=== PATIENT | male | born 1965 | race Caucasian/White ===

== ENCOUNTER 2017-11-02 11:58 | Emergency (ER) | payer BC, OTHER ==
[~2017-11-02] VITALS: Ht 180.3 cm; Wt 136.1 kg
[2017-11-02] MEDS ORDERED: fentaNYL INJECTION 100 MCG/2 ML AMP INJ ONE (12:01)
[2017-11-02] MEDS ORDERED: B/P MEDS (12:05)
[2017-11-02] MEDS ORDERED: CLINDAMYCIN 600 MG/50 ML IVPB 50 ML IV ONE ×2 (12:06→13:00)
--- NOTE | 2017-11-02 12:14 | ED Upper Extremity ---
General Chief Complaint: Trauma EMS/Air Arrival Activat Stated Complaint: RT HAND AMPUTATION Nursing Triage Note: SEE TRAUMA FLOW SHEET. 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 Shortly before arrival (1135) he caught his right hand in a machine with an auger mechanism immediately amputating his right hand. He attempted to stop the blood flow with his left hand and used a towel to this and. A tourniquet was placed. The hand was retrieved from the auger and brought here with the patient. He is alert and oriented and surprisingly calm. Onset: just prior to arrival Pain/Injury Location: right hand Method of Injury: other Allergies and Home Medications Allergies Coded Allergies: tetanus and diphtheria toxoids (Verified Allergy, Unknown, 11/02/17) Patient Home Medication List Home Medication List Reviewed: Yes Constitutional: see HPI EENTM: no symptoms reported Respiratory: no symptoms reported Cardiovascular: no symptoms reported Gastrointestinal: no symptoms reported Genitourinary: no symptoms reported Musculoskeletal: see HPI Skin: no symptoms reported Psychiatric/Neurological: No Symptoms Reported Past Jliptnd-Lojorm-Clpqcu Hx Patient Social History Alcohol Use: Occasionally Uses Recreational Drug Use: No Smoking Status: Never a Smoker Recent Foreign Travel: No Contact w/Someone Who Travel: No Recent Infectious Disease Expo: No Past Medical History Surgeries: Yes Gallbladder Cardiac: Yes Hypertension Physical Exam Vital Signs Capillary Refill : Height, Weight, BMI Height: 5'11.00" Weight: 300lbs. oz. 136.011649gc; 35.15 BMI Method: General Appearance: mild distress, moderate distress HEENT: normal ENT inspection Neck: full range of motion Cardiovascular: normal peripheral pulses, regular rate, rhythm, no edema, no gallop, no JVD, no murmur Respiratory: chest non-tender, lungs clear, normal breath sounds, no respiratory distress, no accessory muscle use The hand is examined. It appears to be cleanly severed at the wrist joint. Progress/Results/Core Measures Results/Orders My Orders Orders - NOLA ANDREWS MD Forearm, Right, 2 Views (11/02/17 12:08) Departure Communication (Admissions) Spoke to come from the trauma transfer service. He had been in touch with the hand surgeon Dr. SCHWAB. He was informed that the helicopter was here in the estimated time of arrival would be 45 minutes. I was instructed to wrap the severed hand in sterile saline soaked towels and placed on ice. This was done. I spoke with Dr. SCHWAB at 1230 and confirmed our findings and the packaging of the severed hand. Impression Primary Impression: traumatic amputation right hand Disposition: 02 XFER SHT-TRM HOSP Condition: Stable/Unchanged Transfer Time Spoke to Accepting Phy: 12:30 Transfer Progress Notes See above progress note Method of Transfer: NOLA Edwards MD Nov 02, 2017 12:14
[2017-11-02 12:20] LABS: MEAN PLATELET VOLUME 9.1 FL (7.4-10.4); RED BLOOD COUNT 4.98 10^6/uL (4.35-5.85); RED CELL DISTRIBUTION WIDTH 13.6 % (10.0-14.5); WHITE BLOOD COUNT 11.9 10^3/uL (4.3-11.0)
[2017-11-02 12:24] VITALS: BP 160/99
[2017-11-02 12:33] LABS: ALANINE AMINOTRANSFERASE 31 U/L (0-55); ALBUMIN 4.3 GM/DL (3.2-4.5); ALKALINE PHOSPHATASE 73 U/L (40-136); BILIRUBIN,DIRECT 0.4 MG/DL (0.0-0.3); BILIRUBIN,INDIRECT 0.9 MG/DL; BILIRUBIN,TOTAL 1.3 MG/DL (0.1-1.0); BUN/CREATININE RATIO 13; CALCIUM 9.2 MG/DL (8.5-10.1); CARBON DIOXIDE 23 MMOL/L (21-32); CHLORIDE 108 MMOL/L (98-107); CREATININE SERUM 0.98 MG/DL (0.60-1.30); GFR ESTIMATED > 60; GLUCOSE 125 MG/DL (70-105); POTASSIUM 3.4 MMOL/L (3.6-5.0); SODIUM 141 MMOL/L (135-145); TOTAL PROTEIN 6.7 GM/DL (6.4-8.2)
--- NOTE | 2017-11-02 12:37 | Diagnostic Imaging Report ---
INDICATION: Amputation injury with heavy auger. TIME OF EXAM: 12:13 PM FINDINGS: Traumatic amputation of the hand and a portion of the carpus is seen. Majority of the proximal carpal row remains. Distal carpal rows as well as the metacarpals and phalanges have been amputated. Osseous density along the dorsum of the distal radius is seen which may represent fracture fragment. Osseous density just distal to the proximal carpal row is also seen suggestive of a fracture fragment. Alignment at the elbow is normal. Marked soft tissue injury is present. IMPRESSION: Traumatic amputation of the right hand and carpus, as described. Dictated by: Dictated on workstation # [id number]
[2017-11-02] MEDS ORDERED: NS IV 1000 ML 1,000 ML ONE (12:50)
[2017-11-02] MEDS ORDERED: NS IV 1000 ML 1,000 ML IV SCH (13:00)
--- NOTE | 2017-11-02 15:29 | HISTORY AND PHYSICAL ---
DATE OF SERVICE: HISTORY OF PRESENT ILLNESS: The patient is a 51-year-old male brought in by EMS after sustaining trauma to his right hand. 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 Coworkers helped him and applied direct pressure to the stump with hemostasis. The hand was retrieved within minutes and brought to [facility] Department on ice. After evaluation, the patient's arm was in a tourniquet with visualization of good hemostasis with full function of the forearm and upper arm. The hand was examined and again appeared to be viable with clean amputation identified. The patient's vital signs were stable and he was awake and alert with a [place] coma scale of 15 and no distracting injuries. [facility] was contacted and referred for potential reimplantation. PAST MEDICAL HISTORY: Hypertension. PAST SURGICAL HISTORY: Laparoscopic cholecystectomy. ALLERGIES: No known drug allergies. MEDICATIONS: Lisinopril 20 mg daily. SOCIAL HISTORY: Negative smoke, social alcohol. FAMILY HISTORY: Noncontributory. REVIEW OF SYSTEMS: Well-nourished male, awake and alert, and answers all questions appropriately. He does not report any significant pain after receiving fentanyl. He is not experiencing any shortness of breath or difficulty breathing. No chest pain, palpitations, or diaphoresis. No nausea or vomiting, no diarrhea or constipation. No shortness of breath or difficulty breathing. No cough or sputum production. All other review of systems is negative. PHYSICAL EXAMINATION: VITAL SIGNS: Stable. Systolic blood pressure in the 140s, heart rate in the 80s. CHEST: Clear. Good breath sounds bilaterally. HEART: Regular, no murmurs. EXTREMITIES: Full amputation at the level of the wrist of the right upper extremity, which is currently in a tourniquet and covered. He has full sensation and purposeful movements of all four extremities. HEENT: No scleral icterus. NECK: No cervical lymphadenopathy. ABDOMEN: Soft, nontender, nondistended. NEUROLOGIC: Alert and oriented x3, moves all four extremities purposefully upon command with pupils equal and reactive. ASSESSMENT AND PLAN: A 51-year-old male with clean full amputation of his right hand at the level of the wrist. He is going to be transported to [facility] by air for reimplantation. Job ID: [id number] DocumentID: [id number] Dictated Date: 11/02/2017 14:19:22 Doweling Machine Operator Date: 11/02/2017 15:29:10 Dictated By: MILTON BAKER MD
== END 2017-11-02 12:35 | disposition short-term general hospital (02) ==
LOC: EDUNIT# 11:58 → ER 12:00
DX: S68.411A Complete traumatic amputation of right hand at wrist level, initial encounter (principal); I10 Essential (primary) hypertension; Z88.7 Allergy status to serum and vaccine; W31.89XA Contact with other specified machinery, initial encounter; Y92.59 Other trade areas as the place of occurrence of the external cause; Y99.0 Civilian activity done for income or pay
CPT/HCPCS: 36415; 73090; 80048; 80076; 80320; 85027; 96374

== ENCOUNTER → 2019-12-27 | Outpatient (CLI) | payer BC, OTHER ==
[~2019-12-27] MED LIST: B/P MEDS
== END ==
LOC: CARD 11:00
PROVIDERS: ATTEND Internal Medicine Cardiovascular Disease
DX: I10 Essential (primary) hypertension (principal); E78.2 Mixed hyperlipidemia; I51.7 Cardiomegaly; R60.9 Edema, unspecified
CPT/HCPCS: 93306

== ENCOUNTER → 2020-04-15 | Outpatient (CLI) | payer BC ==
--- NOTE | 2020-04-16 09:08 | NUR ---
Notified of positive COVID test.
== END ==
LOC: LABNPT 08:50
PROVIDERS: ATTEND Internal Medicine
DX: U07.1 COVID-19 (principal)
CPT/HCPCS: 87635

== ENCOUNTER 2020-04-18 20:15 | Inpatient (IN) | payer BC ==
[~2020-04-18] VITALS: Ht 180 cm; Wt 149.6 kg
[2020-04-18] MEDS ORDERED: LACTATED RINGERS 1,000 ML IV ONE (22:00)
[2020-04-18 22:35] LABS: BASOPHILS % (AUTO) 0 % (0-10); HEMATOCRIT 42 % (40-54); LYMPHOCYTES # (AUTO) 0.9 10^3/uL (1.0-4.0); MEAN CORPUSCULAR HEMOGLOBIN 29 pg (25-34); MEAN CORPUSCULAR HGB CONC 33 g/dL (32-36)
[2020-04-18 22:37] LABS: EOSINOPHILS % (AUTO) 0 % (0-10); LYMPHOCYTES % (AUTO) 14 % (12-44); MEAN CORPUSCULAR VOLUME 87 fL (80-99); MEAN PLATELET VOLUME 9.3 fL (9.0-12.2); MONOCYTES # (AUTO) 0.3 10^3/uL (0.0-1.0); MONOCYTES % (AUTO) 4 % (0-12); NEUTROPHILS # (AUTO) 5.3 10^3/uL (1.8-7.8); NEUTROPHILS % (AUTO) 82 % (42-75); PLATELET COUNT 133 10^3/uL (130-400); WHITE BLOOD COUNT 6.5 10^3/uL (4.3-11.0)
[2020-04-18 22:46] LABS: ALBUMIN 3.8 GM/DL (3.2-4.5); CHLORIDE 98 MMOL/L (98-107); POTASSIUM 3.8 MMOL/L (3.6-5.0); SODIUM 137 MMOL/L (135-145)
[2020-04-18 22:47] LABS: CALCIUM 8.5 MG/DL (8.5-10.1)
[2020-04-18 22:48] LABS: GLUCOSE 113 MG/DL (70-105); TOTAL PROTEIN 7.1 GM/DL (6.4-8.2)
[2020-04-18 22:49] LABS: CARBON DIOXIDE 26 MMOL/L (21-32)
[2020-04-18 22:50] LABS: BILIRUBIN,TOTAL 0.9 MG/DL (0.1-1.0)
[2020-04-18 22:52] LABS: ALKALINE PHOSPHATASE 49 U/L (40-136); GFR ESTIMATED > 60
[2020-04-18 22:53] LABS: BUN/CREATININE RATIO 16
[2020-04-18 22:55] LABS: ALANINE AMINOTRANSFERASE 55 U/L (0-55)
[2020-04-18] MEDS ORDERED: IOHEXOL 350 MG/ML 100 ML (OMNIPAQUE 350) VIAL IV ONE (23:30)
[2020-04-18] MEDS ORDERED: NS 100 ML (IVPB) BAG IV ONE (23:30)
[2020-04-18] MEDS ORDERED: HOLD METFORMIN - RECEIVED CONTRAST 20 ML VIAL IV SCH (23:30)
--- NOTE | 2020-04-19 01:09 | ED General ---
General Chief Complaint: Respiratory Problems Stated Complaint: COVID 19, HYPOXIA, DIARRHEA Nursing Triage Note: ARRIVES TO ROOM 9 AMBULITORY WITH SPOUSE, BOTH ARE BEING SEEN FOR SOB R/T COVID 19. PT WAS DX ON MONDAY. Nursing Sepsis Screen: No Definite Risk Source of Information: Patient Exam Limitations: No Limitations History of Present Illness Date Seen by Provider: Apr 18, 2020 Time Seen by Provider: 21:23 Initial Comments This 54-year-old gentleman presents to the emergency room with complaints of worsening shortness of air and diarrhea since being diagnosed with COVID-19. He has been ill for about a week and was diagnosed on April 15. He is noted to have an oxygen saturation of 78% on room air upon being roomed. Nursing staff noted it took several minutes to resuscitate his saturations on supplemental oxygen. He additionally complains of significant diarrhea and his mucous membranes appear dry. Allergies and Home Medications Allergies Coded Allergies: tetanus and diphtheria toxoids (Verified Allergy, Unknown, 11/02/17) Patient Home Medication List Home Medication List Reviewed: Yes Review of Systems Review of Systems Constitutional: no symptoms reported EENTM: see HPI Respiratory: see HPI Cardiovascular: no symptoms reported Gastrointestinal: see HPI Genitourinary: no symptoms reported Musculoskeletal: no symptoms reported Skin: no symptoms reported Psychiatric/Neurological: No Symptoms Reported Hematologic/Lymphatic: No Symptoms Reported Past Gdscsne-Itvaql-Mdnppq Hx Past Med/Social Hx: Reviewed Nursing Past Med/Soc Hx Patient Social History Alcohol Use: Denies Use Recent Infectious Disease Expo: Yes (COVID 19) Recent Hopitalizations: No Seasonal Allergies Seasonal Allergies: No Past Medical History Surgeries: Yes Gallbladder Respiratory: No Cardiac: Yes Chronic Edema/Swelling, Hypertension Neurological: No Genitourinary: No Gastrointestinal: No Musculoskeletal: No Endocrine: No HEENT: No Cancer: No Psychosocial: No Integumentary: No Blood Disorders: No Physical Exam Vital Signs Vital Signs - First Documented 04/18/20 20:55 Temp 38.0 Pulse 91 Resp 20 B/P (MAP) 143/89 (107) Pulse Ox 70 O2 Delivery Nasal Cannula Capillary Refill : Less Than 3 Seconds Height, Weight, BMI Height: 5'11.00" Weight: 300lbs. oz. 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 Norm as Tested Skin: Normal Color, Warm/Dry Progress/Results/Core Measures Suspected Sepsis Recent Fever Within 48 Hours: No Infection Criteria Present: None New/Unexplained Altered Menta: No Sepsis Screen: No Definite Risk SIRS Temperature: Pulse: 91 Respiratory Rate: 20 Laboratory Tests 04/18/20 22:27: White Blood Count 6.5 Blood Pressure 143 /89 Mean: 107 Laboratory Tests 04/18/20 22:27: Creatinine 1.20, Platelet Count 133, Total Bilirubin 0.9 Results/Orders Lab Results Laboratory Tests Test 04/18/20 22:27 Range/Units White Blood Count 6.5 4.3-11.0 10^3/uL Red Blood Count 4.85 4.30-5.52 10^6/uL Hemoglobin 14.0 13.3-17.7 g/dL Hematocrit 42 40-54 % Mean Corpuscular Volume 87 80-99 fL Mean Corpuscular Hemoglobin 29 25-34 pg Mean Corpuscular Hemoglobin Concent 33 32-36 g/dL Red Cell Distribution Width 14.1 10.0-14.5 % Platelet Count 133 130-400 10^3/uL Mean Platelet Volume 9.3 9.0-12.2 fL Immature Granulocyte % (Auto) 0 % Neutrophils (%) (Auto) 82 H 42-75 % Lymphocytes (%) (Auto) 14 12-44 % Monocytes (%) (Auto) 4 0-12 % Eosinophils (%) (Auto) 0 0-10 % Basophils (%) (Auto) 0 0-10 % Neutrophils # (Auto) 5.3 1.8-7.8 10^3/uL Lymphocytes # (Auto) 0.9 L 1.0-4.0 10^3/uL Monocytes # (Auto) 0.3 0.0-1.0 10^3/uL Eosinophils # (Auto) 0.0 0.0-0.3 10^3/uL Basophils # (Auto) 0.0 0.0-0.1 10^3/uL Immature Granulocyte # (Auto) 0.0 0.0-0.1 10^3/uL D-Dimer 1.16 H 0.00-0.49 UG/ML Sodium Level 137 135-145 MMOL/L Potassium Level 3.8 3.6-5.0 MMOL/L Chloride Level 98 98-107 MMOL/L Carbon Dioxide Level 26 21-32 MMOL/L Anion Gap 13 5-14 MMOL/L Blood Urea Nitrogen 19 H 7-18 MG/DL Creatinine 1.20 0.60-1.30 MG/DL Estimat Glomerular Filtration Rate > 60 BUN/Creatinine Ratio 16 Glucose Level 113 H 70-105 MG/DL Calcium Level 8.5 8.5-10.1 MG/DL Corrected Calcium 8.7 8.5-10.1 MG/DL Total Bilirubin 0.9 0.1-1.0 MG/DL Aspartate Amino Transf (AST/SGOT) 70 H 5-34 U/L Alanine Aminotransferase (ALT/SGPT) 55 0-55 U/L Alkaline Phosphatase 49 40-136 U/L Lactate Dehydrogenase 523 H 125-220 U/L C-Reactive Protein High Sensitivity 10.60 H 0.00-0.50 MG/DL Total Protein 7.1 6.4-8.2 GM/DL Albumin 3.8 3.2-4.5 GM/DL Procalcitonin 0.05 <0.10 NG/ML My Orders Orders - MIGDALIA COYLE MD Cbc With Automated Diff (04/18/20 21:23) Comprehensive Metabolic Panel (04/18/20 21:23) Fibrin Degradation Products (04/18/20 21:23) Procalcitonin (Pct) (04/18/20 21:23) Hs C Reactive Protein (04/18/20 21:23) LDH (04/18/20 21:23) Chest 1 View, Ap/Pa Only (04/18/20 21:23) Dexamethasone Injection (Decadron Inje (04/18/20 21:30) Lactated Ringers (Lr 1000 Ml Iv Solution (04/18/20 22:00) Ct Angio Chest W (04/18/20 22:58) Ed Iv/Invasive Line Start (04/18/20 23:00) Iohexol Injection (Omnipaque 350 Mg/Ml 1 (04/18/20 23:30) Received Contrast (Hold Metformin- Contr (04/18/20 23:30) Ns (Ivpb) (Sodium Chloride 0.9% Ivpb Bag (04/18/20 23:30) Medications Given in ED Current Medications Medications Dose Ordered Sig/Jesus Route Start Time Stop Time Status Last Admin Dose Admin Dexamethasone Sodium Phosphate 6 mg ONCE ONCE IV 04/18/20 21:30 04/18/20 21:31 DC 04/18/20 22:41 6 MG Iohexol 100 ml ONCE ONCE IV 04/18/20 23:30 04/18/20 23:33 DC 04/18/20 23:30 100 ML Lactated Ringer's 1,000 ml @ 0 mls/hr Q0M ONCE IV 04/18/20 22:00 04/18/20 22:01 DC 04/18/20 22:41 1,000 MLS/HR Sodium Chloride 80 ml ONCE ONCE IV 04/18/20 23:30 04/18/20 23:33 DC 04/18/20 23:31 80 ML Vital Signs/I&O 04/18/20 20:55 Temp 38.0 Pulse 91 Resp 20 B/P (MAP) 143/89 (107) Pulse Ox 70 O2 Delivery Nasal Cannula Capillary Refill : Less Than 3 Seconds Blood Pressure Mean: 107 Progress Note : Progress Note Work-up was notable for diffuse infiltrates on chest x-ray and elevated D-dimer. CT angiogram was obtained. No pulmonary emboli were noted. Patient was treated with dexamethasone 6 mg IV. We discussed convalescent plasma to which he consents. We also discussed CODE STATUS and he would like to have a full CODE STATUS. Case was reviewed with Dr. Da Silva. We will continue his a azithromycin in addition to dexamethasone and convalescent plasma therapies. He remained stable on 2 to 4 L by nasal cannula. He received a liter of LR in the emergency room. Diagnostic Imaging Diagonstic Imaging: Xray Plain Films/CT/US/NM/MRI: chest Comments Chest x-ray viewed by me. Report not yet available. There are significant diffuse infiltrates consistent with COVID-19. Diagonstic Imaging: CT Plain Films/CT/US/NM/MRI: chest Comments CT angiogram of the chest reviewed by me and stat rad report reviewed. No pul monary emboli identified. There are diffuse infiltrates consistent with COVID- 19. Departure Communication (Admissions) Time/Spoke to Admitting Phy: 00:04 Dr. Da Silva Impression Primary Impression: COVID-19 Additional Impressions: Hypoxia Diarrhea Qualified Codes: R19.7 - Diarrhea, unspecified Disposition: 09 ADMITTED INPATIENT Condition: Stable Admissions Decision to Admit Reason: Admit from ER (General) Decision to Admit/Date: Apr 19, 2020 Time/Decision to Admit Time: 21:23 Departure-Patient Inst. Referrals: SEJAL GREENE MD (PCP) Primary Care Physician Copy Copies To 1: SEJAL GREENE MD, JOSHUA T MD Apr 19, 2020 01:09
[2020-04-19] MEDS ORDERED: LACTATED RINGERS 1,000 ML IV ONE (01:12)
--- NOTE | 2020-04-19 01:15 | NUR ---
NILA BARNARD admitted to room 424-1, with an admitting diagnosis of COVID-19 HYPOXIA, on 04/19/20 from [place] via WHEELCHAIR, accompanied by STAFF. NILA BARNARD introduced to surroundings, call light, bed controls, phone, TV, temperature control, lights, meal times, smoking policy, visitor policy, side rail policy, bathrooms and showers. Patient Rights given to patient in the handbook. NILA BARNARD verbalizes understanding that [facility] is not responsible for the loss or damage to any personal effects or valuables that are kept in the patients posession during their hospitalization. The following Patient Care Plans were discussed with the : Discharge PlanninG. NILA BARNARD verbalizes understanding of Interdisciplinary Patient Education. Patient and/or family were informed about the Rapid Response Team and its purpose.
[2020-04-19] MEDS ORDERED: ACETAMINOPHEN 500 MG TAB (TYLENOL) PO PRN (02:45)
[2020-04-19] MEDS ORDERED: ONDANSETRON 4 MG/2 ML (SDV) Z0FRAN IV PRN ×2 (02:45→08:30)
[2020-04-19] MEDS: LACTATED RINGERS 1,000 ML IV SCH ×3 (03:17→17:36)
[2020-04-19 04:00] VITALS: BP 131/78
[2020-04-19 06:55] LABS: BASOPHILS % (AUTO) 0 % (0-10); EOSINOPHILS % (AUTO) 0 % (0-10); HEMATOCRIT 40 % (40-54); HEMOGLOBIN 13.2 g/dL (13.3-17.7); LYMPHOCYTES # (AUTO) 0.5 10^3/uL (1.0-4.0); LYMPHOCYTES % (AUTO) 11 % (12-44); MEAN CORPUSCULAR HEMOGLOBIN 29 pg (25-34); MEAN CORPUSCULAR HGB CONC 33 g/dL (32-36); MEAN CORPUSCULAR VOLUME 87 fL (80-99); MEAN PLATELET VOLUME 10.1 fL (9.0-12.2); MONOCYTES # (AUTO) 0.1 10^3/uL (0.0-1.0); MONOCYTES % (AUTO) 3 % (0-12); NEUTROPHILS # (AUTO) 3.8 10^3/uL (1.8-7.8); NEUTROPHILS % (AUTO) 86 % (42-75); PLATELET COUNT 129 10^3/uL (130-400); WHITE BLOOD COUNT 4.4 10^3/uL (4.3-11.0)
[2020-04-19 06:58] LABS: CHLORIDE 101 MMOL/L (98-107); POTASSIUM 3.8 MMOL/L (3.6-5.0); SODIUM 135 MMOL/L (135-145)
[2020-04-19 06:59] LABS: CALCIUM 8.2 MG/DL (8.5-10.1)
[2020-04-19 07:00] LABS: GLUCOSE 126 MG/DL (70-105)
[2020-04-19 07:01] LABS: CARBON DIOXIDE 23 MMOL/L (21-32)
[2020-04-19 07:04] LABS: CREATININE SERUM 0.81 MG/DL (0.60-1.30); GFR ESTIMATED > 60
[2020-04-19 07:05] LABS: BUN/CREATININE RATIO 19
--- NOTE | 2020-04-19 07:42 | Diagnostic Imaging Report ---
CHEST 1 VIEW, AP/PA ONLY Indication: COVID, hypoxia Comparison: None available. Findings: Extensive bilateral pulmonary consolidations. No pleural effusion or pneumothorax. Heart is borderline enlarged. Impression: 1. Extensive bilateral pulmonary consolidations may be due to COVID 19 pneumonia. Dictated by: Dictated on workstation # [id number]
--- NOTE | 2020-04-19 07:53 | Diagnostic Imaging Report ---
PROCEDURE: CT angiography Chest TECHNIQUE: After intravenous administration of contrast, thin section axial CT angiography of the chest was performed. 3D MIP reconstructions were made. All CT scans use one or more of the following dose optimizing techniques: automated exposure control, MA and/or KvP adjustment based on a patient size and exam type, or iterative reconstruction. INDICATION: Shortness of air. COVID positive COMPARISON: Chest radiograph from same day. FINDINGS: Vasculature: No pulmonary emboli to level of the proximal segmental artery branching points. However, respiratory motion artifact limits assessment of the distal segmental and subsegmental pulmonary arteries. No CT evidence of pulmonary hypertension or right ventricular strain. Thoracic aorta is normal in caliber. No aortic dissection or pseudoaneurysm. Heart and mediastinum: Visualized thyroid is normal. No supraclavicular or axillary lymphadenopathy. There are numerous subcentimeter mediastinal and hilar lymph nodes that are likely reactive in nature. The heart is normal in size without pericardial effusion. Pleura: No pleural effusion or pneumothorax. Lungs and airway: No endoluminal lesion in the trachea or central bronchi. Bilateral mixed groundglass opacities and consolidations have a peribronchial and peripheral distribution. Upper abdomen: Diffuse hepatic steatosis. Cholecystectomy. Musculoskeletal: No concerning osseous lesion. IMPRESSION: 1. No pulmonary emboli. 2. Bilateral mixed ground glass opacities and consolidations in the lungs are most likely due to COVID 19 pneumonia. 3. Findings are in agreement with the preliminary report. Dictated by: Dictated on workstation # [id number]
[2020-04-19 08:00] VITALS: BP 144/83
[2020-04-19] MEDS: AZITHROMYCIN 250 MG TAB (ZITHROMAX) PO SCH (08:26)
[2020-04-19] MEDS ORDERED: ONDANSETRON 4 MG (ZOFRAN) ORAL DISSOLVE TAB PO PRN (08:30)
[2020-04-19] MEDS ORDERED: polyethylene glycoL POWDER 17 GM (MIRALAX) PACK PO PRN (08:30)
[2020-04-19] MEDS ORDERED: diphenhydrAMINE 25 MG TAB (BENADRYL) PO PRN (08:30)
[2020-04-19] MEDS ORDERED: ACETAMINOPHEN 325 MG TABLET PO PRN (08:30)
[2020-04-19] MEDS ORDERED: ANTACID SUSP 30 ML UDC (MYLANTA) PO PRN (08:30)
[2020-04-19] MEDS ORDERED: MELATONIN 3 MG TABLET PO PRN (08:30)
[2020-04-19] MEDS: SENNOSIDES 8.6 MG (SENOKOT) TAB PO SCH ×2 (08:56→20:15)
[2020-04-19] MEDS: DOCUSATE SODIUM 100 MG (COLACE) CAP PO SCH ×2 (08:56→20:15)
[2020-04-19] MEDS: ENOXAPARIN 40 MG/0.4 ML (LOVENOX) SYR SC SCH ×2 (09:01→20:16)
[2020-04-19] MEDS: CARVEDILOL 6.25 MG (COREG) TAB PO SCH ×2 (09:01→20:16)
--- NOTE | 2020-04-19 09:55 | Diagnostic Imaging Report ---
INDICATION: Hypoxia. Comparison made with prior examination of 04/18/2020. FINDINGS: There is diffuse bilateral airspace disease. There is cardiomegaly. There is no pleural effusion or pneumothorax. Mediastinum unremarkable. IMPRESSION: Diffuse bilateral airspace disease suspect for pneumonia. Some underlying central pulmonary venous congestion cannot be excluded. Cardiomegaly. Dictated by: Dictated on workstation # [id number]
[2020-04-19] MEDS ORDERED: REMDESIVIR INJ 200 MG in NS (IVPB) 210 ML IV NR (11:00)
[2020-04-19] MEDS: inSUlin ASPART (NovoLOG) 1 UNIT/0.01 ML (CHARGE PER UNIT) SC SCH ×3 (11:44→20:57)
[2020-04-19 12:00] VITALS: BP 133/76
--- NOTE | 2020-04-19 12:04 | History & Physical-Hospitalist ---
History of Present Illness HPI/Chief Complaint Abhinav Michelle is a 54-year-old male with past medical history of hypertension, morbid obesity, who presented with shortness of breath. He reports that his symptoms started about a week ago. He tested positive for COVID-19 on Monday. He says it started with a runny nose. He has had a fever and that is why he decided to get tested. He has had a cough. He has been eating and drinking well. He has lost some of his taste sensation. He reports an episode of nausea and vomiting. He has had diarrhea. He denies any chest pain. He denies any abdominal pain. He has chronic lower extremity swelling which is unchanged. Source: patient Exam Limitations: no limitations Date Seen 04/19/20 Time Seen by a Provider: 10:40 Attending Physician Laly Fuentes MD PCP Akshat Vizcaino MD Referring Physician Date of Admission Apr 19, 2020 at 00:08 Home Medications & Allergies Home Medications Reviewed patient Home Medication Reconciliation performed by pharmacy medication reconciliations electrical assembly technician and/or nursing. Patients Allergies have been reviewed. Allergies Allergies Coded Allergies tetanus and diphtheria toxoids (Verified Allergy, Unknown, 11/02/17) Past Tlpbqbs-Qvebad-Gvcnhq Hx Past Med/Social Hx: Reviewed Nursing Past Med/Soc Hx Patient Social History Alcohol Use: Denies Use Recreational Drug Use: No Recent Foreign Travel: No Contact w/other who traveled: No Recent Hopitalizations: No Recent Infectious Disease Expo: Yes (COVID 19) Seasonal Allergies Seasonal Allergies: No Past Medical History Surgeries: Gallbladder Cardiac: Chronic Edema/Swelling, Hypertension History of Blood Disorders: No Review of Systems Constitutional: fever EENTM: no symptoms reported Respiratory: cough, short of breath Cardiovascular: no symptoms reported Gastrointestinal: diarrhea, nausea, vomiting Genitourinary: no symptoms reported Musculoskeletal: no symptoms reported Skin: no symptoms reported Psychiatric/Neurological: No Symptoms Reported Physical Exam Physical Exam Vital Signs Vital Signs - First Documented 04/18/20 04/19/20 20:55 01:44 Temp 38.0 Pulse 91 Resp 20 B/P (MAP) 143/89 (107) Pulse Ox 70 O2 Delivery Nasal Cannula O2 Flow Rate 3.00 Capillary Refill : Less Than 3 Seconds Height, Weight, BMI Height: 5'11.00" Weight: 300lbs. oz. 136.301231ii; 46.00 BMI Method: General Appearance: No Apparent Distress, Obese HEENT: PERRL/EOMI, Pharynx Normal Neck: Normal Inspection, Supple Respiratory: No Respiratory Distress, Decreased Breath Sounds Cardiovascular: Regular Rate, Rhythm, No Edema, No Murmur Gastrointestinal: Normal Bowel Sounds, Non Tender, Soft Extremity: Non Tender, Swelling, Other (bilateral lower extremity swelling, chronic right hand debility) Neurologic/Psychiatric: Alert, Oriented x3, Normal Mood/Affect Skin: Normal Color, Warm/Dry Results Results/Procedures Labs Laboratory Tests 04/18/20 22:27 04/19/20 06:08 Patient resulted labs reviewed. Imaging: Reviewed Imaging Report Assessment/Plan Admission Diagnosis Acute respiratory failure due to COVID-19 Admission Status: Inpatient Order (span 2 midnights) Reason for Inpatient Admission: respiratory failure requiring supplemental oxygen Assessment and Plan Acute respiratory failure due to COVID-19 COVID positive 04/15/2020 Chest xray with bilateral opacities Ddimer elevated 1.16 CT chest with no PE, bilateral groundglass opacities Procal normal Continued on Azithromycin Started on Decadron Begin Remdesivir Convalescent plasma ordered Supplemental oxygen as needed JOON due to COVID-19 Creatinine 1.2 on arrival, improved to 0.8 today Continue gentle IV fluids HTN Coreg Hyperglycemia A1C pending Sliding scale insulin Morbid obesity Clinically significant, no acute management needs DVT prophylaxis: Lovenox Diagnosis/Problems Diagnosis/Problems (1) Acute respiratory failure due to COVID-19 Status: Acute (2) Acute kidney injury due to COVID-19 Status: Acute (3) HTN (hypertension) Status: Chronic (4) Hyperglycemia Status: Acute (5) Morbid obesity Status: Chronic (6) Elevated d-dimer Status: Acute LALY FUENTES MD Apr 19, 2020 12:04
[2020-04-19 16:00] VITALS: BP 129/77
[2020-04-19 19:57] VITALS: BP 133/78
[2020-04-20 00:34] VITALS: BP 127/76
[2020-04-20] MEDS: LACTATED RINGERS 1,000 ML IV SCH ×2 (02:11→10:53)
[2020-04-20 06:14] LABS: BASOPHILS % (AUTO) 0 % (0-10); EOSINOPHILS % (AUTO) 0 % (0-10); HEMATOCRIT 41 % (40-54); HEMOGLOBIN 13.5 g/dL (13.3-17.7); LYMPHOCYTES # (AUTO) 0.9 10^3/uL (1.0-4.0); LYMPHOCYTES % (AUTO) 11 % (12-44); MEAN CORPUSCULAR HEMOGLOBIN 29 pg (25-34); MEAN CORPUSCULAR HGB CONC 33 g/dL (32-36); MEAN CORPUSCULAR VOLUME 87 fL (80-99); MEAN PLATELET VOLUME 10.5 fL (9.0-12.2); MONOCYTES # (AUTO) 0.5 10^3/uL (0.0-1.0); MONOCYTES % (AUTO) 5 % (0-12); NEUTROPHILS # (AUTO) 6.9 10^3/uL (1.8-7.8); NEUTROPHILS % (AUTO) 83 % (42-75); PLATELET COUNT 158 10^3/uL (130-400); WHITE BLOOD COUNT 8.3 10^3/uL (4.3-11.0)
[2020-04-20 06:30] LABS: ALBUMIN 3.6 GM/DL (3.2-4.5); CHLORIDE 102 MMOL/L (98-107); POTASSIUM 3.9 MMOL/L (3.6-5.0)
[2020-04-20 06:31] LABS: SODIUM 137 MMOL/L (135-145)
[2020-04-20 06:32] LABS: CALCIUM 8.5 MG/DL (8.5-10.1)
[2020-04-20 06:33] LABS: GLUCOSE 132 MG/DL (70-105); TOTAL PROTEIN 6.7 GM/DL (6.4-8.2)
[2020-04-20 06:34] LABS: CARBON DIOXIDE 25 MMOL/L (21-32)
[2020-04-20 06:35] LABS: BILIRUBIN,TOTAL 0.8 MG/DL (0.1-1.0)
[2020-04-20 06:36] LABS: ALKALINE PHOSPHATASE 52 U/L (40-136)
[2020-04-20 06:37] LABS: CREATININE SERUM 0.76 MG/DL (0.60-1.30); GFR ESTIMATED > 60
[2020-04-20 06:38] LABS: BUN/CREATININE RATIO 21
[2020-04-20 06:39] LABS: ALANINE AMINOTRANSFERASE 68 U/L (0-55)
[2020-04-20] MEDS: inSUlin ASPART (NovoLOG) 1 UNIT/0.01 ML (CHARGE PER UNIT) SC SCH ×4 (06:45→21:55)
[2020-04-20 08:00] VITALS: BP 139/79
[2020-04-20] MEDS: DOCUSATE SODIUM 100 MG (COLACE) CAP PO SCH ×2 (09:14→22:15)
[2020-04-20] MEDS: CARVEDILOL 6.25 MG (COREG) TAB PO SCH ×2 (09:14→22:15)
[2020-04-20] MEDS: AZITHROMYCIN 250 MG TAB (ZITHROMAX) PO SCH (09:14)
[2020-04-20] MEDS: ENOXAPARIN 40 MG/0.4 ML (LOVENOX) SYR SC SCH ×2 (09:14→22:14)
[2020-04-20] MEDS: SENNOSIDES 8.6 MG (SENOKOT) TAB PO SCH ×2 (09:14→22:15)
[2020-04-20] MEDS: REMDESIVIR INJ 100 MG in NS (IVPB) 230 ML IV SCH (10:53)
--- NOTE | 2020-04-20 12:34 | Progress Note - Hospitalist ---
Subjective HPI/CC On Admission Date Seen by Provider: Apr 20, 2020 Time Seen by Provider: 12:33 Abhinav Michelle is a 54-year-old male with past medical history of hypertension, morbid obesity, who presented with shortness of breath. He reports that his symptoms started about a week ago. He tested positive for COVID-19 on Monday. He says it started with a runny nose. He has had a fever and that is why he decided to get tested. He has had a cough. He has been eating and drinking well. He has lost some of his taste sensation. He reports an episode of nausea and vomiting. He has had diarrhea. He denies any chest pain. He denies any abdominal pain. He has chronic lower extremity swelling which is unchanged. Subjective/Events-last exam Pt reports doing well. Sitting up in wheelchair. No complaints. Breathing is improving. Objective Exam Vital Signs Vital Signs Date Time Temp Pulse Resp B/P (MAP) Pulse Ox O2 Delivery O2 Flow Rate FiO2 04/20/20 08:00 36.3 74 18 139/79 (99) 93 Nasal Cannula 4.00 Capillary Refill : Less Than 3 Seconds General Appearance: No Apparent Distress, Obese Respiratory: Lungs Clear, No Accessory Muscle Use, Other (on 4lpm) Cardiovascular: Regular Rate, Rhythm, No Murmur Gastrointestinal: Normal Bowel Sounds, Non Tender, Soft Neurologic/Psychiatric: Alert, Oriented x3 Results/Procedures Lab Laboratory Tests 04/20/20 05:40 Patient resulted labs reviewed. Imaging: Reviewed Imaging Report Assessment/Plan Assessment and Plan Assess & Plan/Chief Complaint Acute respiratory failure due to COVID-19 COVID positive 04/15/2020 Chest xray with bilateral opacities Ddimer elevated 1.16 CT chest with no PE, bilateral groundglass opacities Procal normal x2, DC azithro Continue on Decadron Continue Remdesivir Convalescent plasma ordered, awaiting arrival Supplemental oxygen as needed JOON due to COVID-19 Resolved HTN Coreg Hyperglycemia A1C 7.1 Sliding scale insulin Morbid obesity Clinically significant, no acute management needs DVT prophylaxis: FRAN Ahuja MD Apr 20, 2020 12:34
[2020-04-20] MEDS ORDERED: POTA10TA6 PO (12:48)
[2020-04-20] MEDS ORDERED: QUIN40TA14 PO (12:48)
[2020-04-20] MEDS ORDERED: AZIT250T12 PO (12:48)
[2020-04-20] MEDS ORDERED: HYDR12.56 PO (12:48)
[2020-04-20] MEDS ORDERED: TR1C15 TOP (12:48)
[2020-04-20] MEDS ORDERED: MULT-1136 PO (12:48)
[2020-04-20] MEDS ORDERED: FURO40TA4 PO (12:48)
[2020-04-20] MEDS ORDERED: ONDA4TAB11 PO (12:48)
[2020-04-20] MEDS ORDERED: IBUP-2473 PO (12:48)
--- NOTE | 2020-04-20 12:52 | NUR ---
I SPOKE WITH THE PATIENT ON THE ROOM PHONE AND WENT THROUGH THE EXTERNAL MED HISTORY TO COMPLETE THIS MED REC. OTC: MULTIVITAMIN IBUPROFEN
[2020-04-20 15:33] VITALS: BP 139/85
[2020-04-20] MEDS: FUROSEMIDE 40 MG/4 ML INJ (LASIX) IVP NR ×2 (17:25→17:27)
[2020-04-20 23:57] VITALS: BP 137/85
[2020-04-21] MEDS: inSUlin ASPART (NovoLOG) 1 UNIT/0.01 ML (CHARGE PER UNIT) SC SCH ×4 (06:10→21:06)
[2020-04-21 06:40] LABS: BASOPHILS % (AUTO) 0 % (0-10); EOSINOPHILS % (AUTO) 0 % (0-10); HEMATOCRIT 44 % (40-54); HEMOGLOBIN 14.5 g/dL (13.3-17.7); LYMPHOCYTES % (AUTO) 10 % (12-44); MEAN CORPUSCULAR HEMOGLOBIN 29 pg (25-34); MEAN CORPUSCULAR HGB CONC 33 g/dL (32-36); MEAN CORPUSCULAR VOLUME 87 fL (80-99); MEAN PLATELET VOLUME 9.6 fL (9.0-12.2); MONOCYTES # (AUTO) 0.5 10^3/uL (0.0-1.0); MONOCYTES % (AUTO) 5 % (0-12); NEUTROPHILS # (AUTO) 8.4 10^3/uL (1.8-7.8); NEUTROPHILS % (AUTO) 84 % (42-75); PLATELET COUNT 208 10^3/uL (130-400); WHITE BLOOD COUNT 9.9 10^3/uL (4.3-11.0)
[2020-04-21 06:54] LABS: ALBUMIN 3.7 GM/DL (3.2-4.5); CHLORIDE 104 MMOL/L (98-107); POTASSIUM 3.8 MMOL/L (3.6-5.0); SODIUM 139 MMOL/L (135-145)
[2020-04-21 06:55] LABS: CALCIUM 8.5 MG/DL (8.5-10.1)
[2020-04-21 06:56] LABS: GLUCOSE 110 MG/DL (70-105)
[2020-04-21 06:57] LABS: TOTAL PROTEIN 6.7 GM/DL (6.4-8.2)
[2020-04-21 06:58] LABS: BILIRUBIN,TOTAL 0.8 MG/DL (0.1-1.0); CARBON DIOXIDE 25 MMOL/L (21-32)
[2020-04-21 07:00] LABS: ALKALINE PHOSPHATASE 61 U/L (40-136); CREATININE SERUM 0.74 MG/DL (0.60-1.30); GFR ESTIMATED > 60
[2020-04-21 07:01] LABS: BUN/CREATININE RATIO 24
[2020-04-21 07:03] LABS: ALANINE AMINOTRANSFERASE 68 U/L (0-55)
[2020-04-21 07:30] VITALS: BP 160/97
--- NOTE | 2020-04-21 08:33 | Progress Note - Hospitalist ---
Subjective HPI/CC On Admission Date Seen by Provider: Apr 21, 2020 Time Seen by Provider: 08:29 Abhinav Michelle is a 54-year-old male with past medical history of hypertension, morbid obesity, who presented with shortness of breath. He reports that his symptoms started about a week ago. He tested positive for COVID-19 on Monday. He says it started with a runny nose. He has had a fever and that is why he decided to get tested. He has had a cough. He has been eating and drinking well. He has lost some of his taste sensation. He reports an episode of nausea and vomiting. He has had diarrhea. He denies any chest pain. He denies any abdominal pain. He has chronic lower extremity swelling which is unchanged. Subjective/Events-last exam Pt reports doing well today. Sitting up in hospital wheelchair. No specific complaints. Reports able to ambulate well and SOB improving. Objective Exam Vital Signs Vital Signs Date Time Temp Pulse Resp B/P (MAP) Pulse Ox O2 Delivery O2 Flow Rate FiO2 04/20/20 23:57 36.0 71 20 137/85 (102) 91 Nasal Cannula 3.00 Capillary Refill : Less Than 3 Seconds General Appearance: No Apparent Distress, WD/WN, Obese Respiratory: Lungs Clear, No Respiratory Distress Cardiovascular: Regular Rate, Rhythm, No Murmur Neurologic/Psychiatric: Alert, Oriented x3, Normal Mood/Affect Results/Procedures Lab Laboratory Tests 04/21/20 06:30 Patient resulted labs reviewed. Imaging: Reviewed Imaging Report Assessment/Plan Assessment and Plan Assess & Plan/Chief Complaint Acute respiratory failure due to COVID-19 COVID positive 04/15/2020 Chest xray with bilateral opacities CT chest with no PE, bilateral groundglass opacities Procal normal x2, DC azithro Continue on Decadron, switch to oral Continue Remdesivir, day 3/5 Convalescent plasma ordered, awaiting arrival Supplemental oxygen as needed- wean as able JOON due to COVID-19 Resolved HTN Coreg Hyperglycemia A1C 7.1 Sliding scale insulin Morbid obesity Clinically significant, no acute management needs DVT prophylaxis: FRAN Ahuja MD Apr 21, 2020 08:33
[2020-04-21] MEDS: DOCUSATE SODIUM 100 MG (COLACE) CAP PO SCH ×2 (09:02→20:19)
[2020-04-21] MEDS: CARVEDILOL 6.25 MG (COREG) TAB PO SCH ×2 (09:02→20:19)
[2020-04-21] MEDS: ENOXAPARIN 40 MG/0.4 ML (LOVENOX) SYR SC SCH ×2 (09:02→20:20)
[2020-04-21] MEDS: SENNOSIDES 8.6 MG (SENOKOT) TAB PO SCH ×2 (09:02→20:20)
[2020-04-21] MEDS: dexAMETHasone 6 MG TAB (DECADRON) PO SCH (09:08)
[2020-04-21] MEDS: REMDESIVIR INJ 100 MG in NS (IVPB) 230 ML IV SCH (11:29)
[2020-04-21 16:00] VITALS: BP 157/98
[2020-04-21] MEDS ORDERED: NS IV 500 ML 500 ML ONE (16:44)
[2020-04-21 17:23] VITALS: BP 157/98
[2020-04-21] MEDS: IBUPROFEN 600 MG (MOTRIN) TAB PO PRN (17:34)
[2020-04-21] MEDS: hydrOXYzine (VISTARIL/ATARAX) 25 MG capsule/tablet PO PRN (17:34)
[2020-04-21 17:38] LABS: ABG BASE EXCESS 1.4 MMOL/L (-2.5-2.5); ABG OXYGEN SATURATION 99 % (94-100); ABG PCO2 30 MMHG (35-45); ABG PH 7.52 (7.37-7.43); ABG PO2 136 MMHG (79-93); ABG TCO2 25.4 MMOL/L (21.0-31.0)
[2020-04-21 17:39] LABS: INSPIRED O2 100%; PATIENT TEMP 35.9; VENTILATOR NO
[2020-04-21 17:45] VITALS: BP 156/90
[2020-04-21 20:17] VITALS: BP 137/74
[2020-04-21] MEDS ORDERED: hydrOXYzine (VISTARIL/ATARAX) 25 MG capsule/tablet PO SCH (21:00)
[2020-04-21 23:57] VITALS: BP 140/76
[2020-04-22] VITALS (13 sets, daily range): BP systolic 139–180; BP diastolic 83–116
[2020-04-22] MEDS: hydrOXYzine (VISTARIL/ATARAX) 25 MG capsule/tablet PO PRN (04:46)
[2020-04-22] MEDS: dexAMETHasone 6 MG TAB (DECADRON) PO SCH (06:19)
[2020-04-22] MEDS: inSUlin ASPART (NovoLOG) 1 UNIT/0.01 ML (CHARGE PER UNIT) SC SCH ×4 (06:19→20:28)
[2020-04-22 06:26] LABS: BASOPHILS % (AUTO) 0 % (0-10); EOSINOPHILS % (AUTO) 0 % (0-10); HEMATOCRIT 42 % (40-54); HEMOGLOBIN 14.1 g/dL (13.3-17.7); LYMPHOCYTES # (AUTO) 0.9 10^3/uL (1.0-4.0); LYMPHOCYTES % (AUTO) 8 % (12-44); MEAN CORPUSCULAR HEMOGLOBIN 29 pg (25-34); MEAN CORPUSCULAR HGB CONC 34 g/dL (32-36); MEAN CORPUSCULAR VOLUME 87 fL (80-99); MEAN PLATELET VOLUME 9.6 fL (9.0-12.2); MONOCYTES # (AUTO) 0.3 10^3/uL (0.0-1.0); MONOCYTES % (AUTO) 3 % (0-12); NEUTROPHILS # (AUTO) 9.3 10^3/uL (1.8-7.8); NEUTROPHILS % (AUTO) 87 % (42-75); PLATELET COUNT 202 10^3/uL (130-400); WHITE BLOOD COUNT 10.6 10^3/uL (4.3-11.0)
[2020-04-22 06:40] LABS: ALBUMIN 3.6 GM/DL (3.2-4.5); CHLORIDE 105 MMOL/L (98-107); POTASSIUM 3.5 MMOL/L (3.6-5.0); SODIUM 140 MMOL/L (135-145)
[2020-04-22 06:42] LABS: CALCIUM 8.2 MG/DL (8.5-10.1); LYMPHOCYTES % (MANUAL) 8 %; MONOCYTES % (MANUAL) 2 %; NEUTROPHILS % (MANUAL) 90 %; RBC MORPH NORMAL
[2020-04-22 06:43] LABS: GLUCOSE 95 MG/DL (70-105); TOTAL PROTEIN 6.6 GM/DL (6.4-8.2)
[2020-04-22 06:44] LABS: CARBON DIOXIDE 26 MMOL/L (21-32)
[2020-04-22 06:45] LABS: BILIRUBIN,TOTAL 1.1 MG/DL (0.1-1.0)
[2020-04-22 06:46] LABS: ALKALINE PHOSPHATASE 90 U/L (40-136); CREATININE SERUM 0.67 MG/DL (0.60-1.30); GFR ESTIMATED > 60
[2020-04-22 06:47] LABS: BUN/CREATININE RATIO 22
[2020-04-22 06:49] LABS: ALANINE AMINOTRANSFERASE 70 U/L (0-55)
[2020-04-22] MEDS: CARVEDILOL 6.25 MG (COREG) TAB PO SCH ×2 (08:38→20:28)
[2020-04-22] MEDS: DOCUSATE SODIUM 100 MG (COLACE) CAP PO SCH ×2 (08:38→20:28)
[2020-04-22] MEDS: ENOXAPARIN 300 MG/3 ML (LOVENOX) MULTI-DOSE VIAL SQ SCH ×2 (08:39→20:28)
[2020-04-22] MEDS: SENNOSIDES 8.6 MG (SENOKOT) TAB PO SCH ×2 (09:00→20:28)
--- NOTE | 2020-04-22 09:03 | Progress Note - Hospitalist ---
Subjective HPI/CC On Admission Date Seen by Provider: Apr 22, 2020 Time Seen by Provider: 08:55 Abhinav Michelle is a 54-year-old male with past medical history of hypertension, morbid obesity, who presented with shortness of breath. He reports that his symptoms started about a week ago. He tested positive for COVID-19 on Monday. He says it started with a runny nose. He has had a fever and that is why he decided to get tested. He has had a cough. He has been eating and drinking well. He has lost some of his taste sensation. He reports an episode of nausea and vomiting. He has had diarrhea. He denies any chest pain. He denies any abdominal pain. He has chronic lower extremity swelling which is unchanged. Subjective/Events-last exam Pt reports feeling SOB. Worse since yesterday. States he's unable to tolerate proning. Objective Exam Vital Signs Vital Signs Date Time Temp Pulse Resp B/P (MAP) Pulse Ox O2 Delivery O2 Flow Rate FiO2 04/22/20 08:14 37.1 84 20 168/96 (120) 95 Vapotherm 30.00 95.00 04/22/20 07:40 90 Capillary Refill : Less Than 3 Seconds General Appearance: No Apparent Distress, WD/WN, Obese Respiratory: No Accessory Muscle Use, Decreased Breath Sounds, Other (on Vapotherm) Cardiovascular: Regular Rate, Rhythm, No Murmur Neurologic/Psychiatric: Alert, Oriented x3 Results/Procedures Lab Laboratory Tests 04/22/20 06:15 Patient resulted labs reviewed. Imaging: Reviewed Imaging Report Assessment/Plan Assessment and Plan Assess & Plan/Chief Complaint Acute respiratory failure due to COVID-19 COVID positive 04/15/2020 Chest xray with bilateral opacities CT chest with no PE, bilateral groundglass opacities D-dimer up to >6 today will change to therapeutic Lovenox Procal normal x2, DC azithro Continue on Decadron Remdesivir, may DC in ICU Convalescent plasma ordered, awaiting arrival Transfer to ICU as went from 4lpm to 30lpm 90% on vapotherm since yesterday morning- discussed with Dr Cindy DUPREE due to COVID-19 Resolved HTN Coreg Hyperglycemia A1C 7.1 Sliding scale insulin Morbid obesity Clinically significant, no acute management needs DVT prophylaxis: Lupenox FRAN MCCALLUM MD Apr 22, 2020 09:03
--- NOTE | 2020-04-22 09:23 | Pulmonary Consultation ---
History of Present Illness History of Present Illness Date Seen by Provider: Apr 22, 2020 Time Seen by Provider: 09:18 Date of Admission Allergies and Home Medications Allergies Coded Allergies: tetanus and diphtheria toxoids (Verified Allergy, Unknown, 11/02/17) Home Medications Azithromycin 250 Mg Tablet, 250 MG PO DAILY, (Reported) FILLED 04/17/2019 #6 5 DAY SUPPLY Furosemide 40 Mg Tablet, 40 MG PO DAILY, (Reported) Hydrochlorothiazide 12.5 Mg Tablet, 12.5 MG PO DAILY, (Reported) Ibuprofen 200 Mg Tablet, 600 MG PO Q6H PRN for PAIN-MILD (1-4), (Reported) TAKES 3 (200MG) TABLETS Multivitamin 1 Each Tablet, 1 EACH PO DAILY, (Reported) Ondansetron 4 Mg Tab.rapdis, 4 MG PO Q6H PRN for NAUSEA/VOMITING-1ST LINE, (Reported) Potassium Chloride 10 Meq Tablet.er, 10 MEQ PO DAILY, (Reported) Quinapril HCl 40 Mg Tablet, 40 MG PO DAILY, (Reported) Triamcinolone Acet 15 Gm Cr, 1 APPLIC TOP BID PRN for RASH, (Reported) APPLY TO GENITAL AREA Past Qpxthtv-Qavmti-Sjikqi Hx Past Med/Social Hx: Reviewed Nursing Past Med/Soc Hx Patient Social History Alcohol Use: Denies Use Recent Infectious Disease Expo: Yes (COVID 19) Recent Hopitalizations: No Seasonal Allergies Seasonal Allergies: No Past Medical History Surgeries: Yes Gallbladder Respiratory: No Cardiac: Yes Chronic Edema/Swelling, Hypertension Neurological: No Genitourinary: No Gastrointestinal: No Musculoskeletal: No Endocrine: No HEENT: No Cancer: No Psychosocial: No Integumentary: No Blood Disorders: No Sepsis Event Evaluation Height, Weight, BMI Height: 5'11.00" Weight: 300lbs. oz. 136.706060rz; 46.17 BMI Method: Exam Exam Vital Signs Date Time Temp Pulse Resp B/P (MAP) Pulse Ox O2 Delivery O2 Flow Rate FiO2 04/22/20 08:14 37.1 84 20 168/96 (120) 95 Vapotherm 30.00 95.00 04/22/20 07:40 94 Vapotherm 30.00 90 04/22/20 04:37 35.8 70 20 139/83 (101) 93 Vapotherm 25.00 95.00 04/22/20 02:22 94 Vapotherm 25.00 95 04/21/20 23:57 35.6 69 22 140/76 (97) 95 Vapotherm 30.00 100.00 04/21/20 20:19 Vapotherm 20.00 70 04/21/20 20:17 36.3 74 20 137/74 95 Vapotherm 20.00 70 04/21/20 18:59 90 Vapotherm 20.00 60 04/21/20 17:45 36.1 75 22 156/90 99 Vapotherm 40.00 80 04/21/20 17:23 35.9 78 22 157/98 92 Vapotherm 40.00 100 04/21/20 16:00 35.9 78 22 157/98 (117) 95 Vapotherm 40.00 100.00 04/21/20 09:56 Nasal Cannula 3.00 I & O 04/22/20 07:00 Intake Total 1500 ml Output Total 1950 ml Balance -450 ml Height & Weight Height: 5'11.00" Weight: 300lbs. oz. 136.018429za; 46.17 BMI Method: General Appearance: No Apparent Distress, WD/WN, Obese HEENT: PERRL/EOMI, Pharynx Normal Neck: Normal Inspection, Supple Respiratory: No Accessory Muscle Use, Decreased Breath Sounds, Other (on Vapotherm) Cardiovascular: Regular Rate, Rhythm, No Murmur Capillary Refill: Less Than 3 Seconds Extremity: Non Tender, Swelling, Other (bilateral lower extremity swelling, chronic right hand debility) Neurologic/Psychiatric: Alert, Oriented x3 Skin: Normal Color, Warm/Dry Results Lab Laboratory Tests 04/21/20 06:30 04/22/20 06:15 Assessment/Plan Assessment/Plan Acute respiratory failure secondary to COVID 19 -Currenlty requiring 90% Vapotherm -Pt is transferring to ICU -Repeat CXR -CT chest - No PE bilateral GGO -Continue Decadron -Currently on Remdesivir -CVP Hypokalemia -Replace -Check mag and phos DDIMER - increased to 6.95 -Continue Theraputic dose lovenox JOON -Monitor HTN Coreg Hyperglycemia A1C 7.1 Sliding scale insulin Morbid obesity BiPAP PRN DVT prophylaxis: Lovenox KUMAR LOPEZ DO Apr 22, 2020 09:23
[2020-04-22 09:40] LABS: MAGNESIUM 2.7 MG/DL (1.6-2.4)
--- NOTE | 2020-04-22 10:04 | Diagnostic Imaging Report ---
INDICATION: Shortness of breath COMPARISON: 04/19/2020 TECHNIQUE: Single radiograph chest dated 04/22/2020. FINDINGS: The cardiac silhouette appears enlarged, though stable. Pulmonary vasculature is obscured. Extensive bilateral mixed interstitial and airspace opacities are again identified. Some regions appear minimally improved while other regions appear minimally worsened since the prior examination. No significant pleural effusion. No pneumothorax. No acute osseous abnormality. IMPRESSION: Severe bilateral pulmonary infiltrates are again identified. Overall severity is similar to the prior examination with some regions appearing slightly improved other regions appearing slightly worsened since the prior exam. Persistent cardiomegaly. Pulmonary vasculature is obscured. Dictated by: Dictated on workstation # [id number]
[2020-04-22] MEDS: POTASSIUM CL 10MEQ/50ML IVPB 50 ML IV SCH ×4 (10:32→14:32)
--- NOTE | 2020-04-22 10:50 | NUR ---
PT TRANSFERRED TO [facility] AT THIS TIME, REPORT GIVEN TO BARBARA HERRERA AT PT BEDSIDE. 98% ON VAPOTHERM 30L 90%
[2020-04-22] MEDS: REMDESIVIR INJ 100 MG in NS (IVPB) 230 ML IV SCH (10:53)
--- NOTE | 2020-04-22 11:27 | NUR ---
SPOKE WITH PT ALY BARNARD AND UPDATED HER ON PT MOVING TO ICU ROOM 4.
[2020-04-22] MEDS: RT-ALBUTEROL INHALER HFA (VENTOLIN HFA) 18 GM IH SCH ×3 (14:44→23:12)
[2020-04-22] MEDS: RT-ALBUTEROL INHALER HFA (VENTOLIN HFA) 18 GM IH PRN (14:58)
[2020-04-23] VITALS (24 sets, daily range): BP systolic 124–224; BP diastolic 77–125
[2020-04-23] MEDS: IBUPROFEN 600 MG (MOTRIN) TAB PO PRN ×2 (01:43→22:57)
[2020-04-23] MEDS: RT-ALBUTEROL INHALER HFA (VENTOLIN HFA) 18 GM IH SCH ×6 (03:03→22:38)
[2020-04-23 04:26] LABS: BASOPHILS % (AUTO) 0 % (0-10); EOSINOPHILS % (AUTO) 0 % (0-10); HEMATOCRIT 42 % (40-54); HEMOGLOBIN 13.9 g/dL (13.3-17.7); LYMPHOCYTES # (AUTO) 0.8 10^3/uL (1.0-4.0); LYMPHOCYTES % (AUTO) 7 % (12-44); MEAN CORPUSCULAR HEMOGLOBIN 29 pg (25-34); MEAN CORPUSCULAR HGB CONC 33 g/dL (32-36); MEAN CORPUSCULAR VOLUME 87 fL (80-99); MEAN PLATELET VOLUME 9.6 fL (9.0-12.2); MONOCYTES # (AUTO) 0.2 10^3/uL (0.0-1.0); MONOCYTES % (AUTO) 2 % (0-12); NEUTROPHILS # (AUTO) 10.8 10^3/uL (1.8-7.8); NEUTROPHILS % (AUTO) 88 % (42-75); PLATELET COUNT 201 10^3/uL (130-400); WHITE BLOOD COUNT 12.2 10^3/uL (4.3-11.0)
[2020-04-23 04:45] LABS: ALANINE AMINOTRANSFERASE 62 U/L (0-55); ALBUMIN 3.5 GM/DL (3.2-4.5); ALKALINE PHOSPHATASE 90 U/L (40-136); BILIRUBIN,TOTAL 1.7 MG/DL (0.1-1.0); BUN/CREATININE RATIO 23; CALCIUM 8.3 MG/DL (8.5-10.1); CARBON DIOXIDE 19 MMOL/L (21-32); CHLORIDE 106 MMOL/L (98-107); CREATININE SERUM 0.77 MG/DL (0.60-1.30); GFR ESTIMATED > 60; GLUCOSE 100 MG/DL (70-105); MAGNESIUM 1.9 MG/DL (1.6-2.4); PHOSPHORUS 3.1 MG/DL (2.3-4.7); POTASSIUM 3.6 MMOL/L (3.6-5.0); SODIUM 139 MMOL/L (135-145); TOTAL PROTEIN 6.4 GM/DL (6.4-8.2)
[2020-04-23] MEDS ORDERED: FUROSEMIDE 40 MG/4 ML INJ (LASIX) IVP ONE (05:00)
--- NOTE | 2020-04-23 05:04 | Pulmonary Progress Note ---
Subjective Time Seen by a Provider: 04:58 Subjective/Events-last exam Pt is on Vapotherm currently. Sepsis Event Evaluation Height, Weight, BMI Height: 5'11.00" Weight: 300lbs. oz. 136.189599dz; 46.17 BMI Method: Exam Exam Vital Signs Date Time Temp Pulse Resp B/P (MAP) Pulse Ox O2 Delivery O2 Flow Rate FiO2 04/23/20 04:13 37.9 Vapotherm 30.00 50.00 04/23/20 04:00 80 36 130/87 (101) 100 Vapotherm 30.00 60.00 04/23/20 03:03 98 Vapotherm 30.00 70 04/23/20 03:00 78 19 168/98 (121) 99 Vapotherm 30.00 60.00 04/23/20 02:00 Vapotherm 30.00 60.00 04/23/20 02:00 89 19 163/94 (117) 100 Vapotherm 30.00 60.00 04/23/20 01:48 38.6 04/23/20 01:43 38.6 04/23/20 01:00 81 17 170/97 (121) 94 Vapotherm 30.00 70.00 04/23/20 01:00 88 04/23/20 00:00 85 14 156/91 (112) 94 Vapotherm 30.00 70.00 04/22/20 23:33 38.0 04/22/20 23:12 94 Vapotherm 30.00 70 04/22/20 23:00 74 17 164/98 (120) 92 Vapotherm 30.00 70.00 04/22/20 22:08 38.0 04/22/20 22:00 89 12 164/99 (120) 93 Vapotherm 30.00 70.00 04/22/20 21:38 38.0 04/22/20 21:00 79 26 167/97 (120) 96 Vapotherm 30.00 70.00 04/22/20 20:30 Vapotherm 30.00 70.00 04/22/20 20:23 37.3 Vapotherm 30.00 50.00 04/22/20 20:00 75 16 161/102 (121) 94 Vapotherm 30.00 50.00 04/22/20 20:00 Vapotherm 30.00 50 04/22/20 19:20 91 Vapotherm 30.00 50 04/22/20 19:00 82 04/22/20 19:00 82 17 93 Vapotherm 30.00 50.00 04/22/20 16:00 79 35 150/88 (108) 92 Vapotherm 30.00 50.00 04/22/20 15:26 37.4 04/22/20 15:00 84 9 177/98 (124) 91 Vapotherm 30.00 50.00 04/22/20 14:59 92 Vapotherm 30.00 50 04/22/20 14:00 82 9 162/110 (127) 96 Vapotherm 30.00 50.00 04/22/20 13:39 Vapotherm 30.00 50 04/22/20 13:24 37.9 83 94 50 04/22/20 13:03 76 04/22/20 13:00 81 13 155/108 (124) 91 Vapotherm 30.00 50.00 04/22/20 12:00 73 10 178/113 (134) 94 Vapotherm 30.00 50.00 04/22/20 11:31 37.9 04/22/20 11:00 85 14 180/116 (137) 90 Vapotherm 30.00 50.00 04/22/20 10:49 79 04/22/20 10:30 Vapotherm 30.00 50 04/22/20 08:14 37.1 84 20 168/96 (120) 95 Vapotherm 30.00 95.00 04/22/20 08:00 Vapotherm 30.00 40 04/22/20 07:40 94 Vapotherm 30.00 90 I & O 04/23/20 07:00 Intake Total 1320 ml Output Total 1900 ml Balance -580 ml Height & Weight Height: 5'11.00" Weight: 300lbs. oz. 136.555359mg; 46.17 BMI Method: General Appearance: WD/WN, Anxious, Moderate Distress, Obese HEENT: PERRL/EOMI, Pharynx Normal Neck: Normal Inspection, Supple Respiratory: No Accessory Muscle Use, Decreased Breath Sounds, Other (on Vapotherm) Cardiovascular: Regular Rate, Rhythm, No Murmur Capillary Refill: Less Than 3 Seconds Extremity: Non Tender, Swelling, Other (bilateral lower extremity swelling, chronic right hand debility) Neurologic/Psychiatric: Alert, Oriented x3 Skin: Normal Color, Warm/Dry Results Lab Laboratory Tests 04/21/20 06:30 04/22/20 06:15 04/23/20 04:05 Assessment/Plan Assessment/Plan Acute respiratory failure secondary to COVID 19 -Currenlty requiring 90% Vapotherm -Pt is transferring to ICU -Repeat CXR -CT chest - No PE bilateral GGO -Continue Decadron -Currently on Remdesivir -CVP Hypokalemia -Replace -Check mag and phos DDIMER - increased to 6.95 -Continue Theraputic dose lovenox JOON -Monitor HTN Coreg Hyperglycemia A1C 7.1 Sliding scale insulin Morbid obesity BiPAP PRN DVT prophylaxis: Lovenox 150mg BID KUMAR LOPEZ DO Apr 23, 2020 05:04
[2020-04-23] MEDS ORDERED: FUROSEMIDE 40 MG/4 ML INJ (LASIX) ONE (05:05)
[2020-04-23] MEDS ORDERED: WATER (STERILE) FOR INJECTION 10 ML ONE (05:05)
[2020-04-23] MEDS ORDERED: cefTRIAXone 1,000 MG IV (ROCEPHIN) VIAL ONE (05:05)
[2020-04-23] MEDS: inSUlin ASPART (NovoLOG) 1 UNIT/0.01 ML (CHARGE PER UNIT) SC SCH ×4 (05:07→19:59)
[2020-04-23] MEDS: cefTRIAXone FOR IV USE 1,000 MG in WATER (STERILE) FOR INJECTION 10 ML IV SCH (05:30)
[2020-04-23] MEDS: dexAMETHasone 6 MG TAB (DECADRON) PO SCH (05:31)
[2020-04-23 05:58] LABS: CLARITY,URINE CLEAR; COLOR,URINE YELLOW; GLUCOSE, URINE (UA) NEGATIVE (NEGATIVE); KETONES,URINE 1+ (NEGATIVE); LEUKOCYTE ESTERASE ,URINE NEGATIVE (NEGATIVE); NITRITE,URINE NEGATIVE (NEGATIVE); PROTEIN,URINE TRACE (NEGATIVE)
[2020-04-23 06:20] LABS: BACTERIA,URINE FEW /HPF; BILIRUBIN,URINE 1+ (NEGATIVE)
--- NOTE | 2020-04-23 07:00 | Diagnostic Imaging Report ---
INDICATION: COVID positive Time of exam 1:46 AM Correlation is made prior chest 1 day earlier. Extensive bilateral pulmonary infiltrates are noted and appear worse on today's study. There is no effusion or pneumothorax. Heart size is stable. IMPRESSION: Worsening bilateral airspace pulmonary infiltrates when compared to exam one day earlier. Dictated by: Dictated on workstation # [id number]
[2020-04-23] MEDS ORDERED: KCL 20 MEQ TAB (K-DUR) PO ONE (09:00)
[2020-04-23] MEDS ORDERED: AZITHROMYCIN INJECTION 500 MG in NS (IVPB) 250 ML IV ONE (09:00)
[2020-04-23] MEDS: CARVEDILOL 6.25 MG (COREG) TAB PO SCH ×2 (09:05→19:59)
[2020-04-23] MEDS: FAMOTIDINE 20MG/2ML IV (PEPCID) IVP SCH ×2 (09:05→19:59)
[2020-04-23] MEDS: DOCUSATE SODIUM 100 MG (COLACE) CAP PO SCH ×2 (09:06→19:09)
[2020-04-23] MEDS: SENNOSIDES 8.6 MG (SENOKOT) TAB PO SCH ×2 (09:06→19:09)
[2020-04-23] MEDS: ENOXAPARIN 300 MG/3 ML (LOVENOX) MULTI-DOSE VIAL SQ SCH ×2 (09:06→19:59)
[2020-04-23] MEDS: REMDESIVIR INJ 100 MG in NS (IVPB) 230 ML IV SCH (09:38)
[2020-04-23] MEDS ORDERED: hydrALAZINE (APESOLINE) 20 MG/ML VIAL IV PRN (18:30)
[2020-04-23] MEDS ORDERED: meTOprolol TARTRATE 25 MG (LOPRESSOR) TABLET PO SCH (21:00)
[2020-04-24] VITALS (23 sets, daily range): BP systolic 109–147; BP diastolic 70–101
[2020-04-24] MEDS: RT-ALBUTEROL INHALER HFA (VENTOLIN HFA) 18 GM IH SCH ×6 (02:17→21:20)
[2020-04-24 04:08] LABS: BASOPHILS % (AUTO) 0 % (0-10); EOSINOPHILS # (AUTO) 0.1 10^3/uL (0.0-0.3); EOSINOPHILS % (AUTO) 1 % (0-10); HEMATOCRIT 42 % (40-54); HEMOGLOBIN 13.9 g/dL (13.3-17.7); LYMPHOCYTES # (AUTO) 0.9 10^3/uL (1.0-4.0); LYMPHOCYTES % (AUTO) 8 % (12-44); MEAN CORPUSCULAR HEMOGLOBIN 29 pg (25-34); MEAN CORPUSCULAR HGB CONC 33 g/dL (32-36); MEAN CORPUSCULAR VOLUME 88 fL (80-99); MEAN PLATELET VOLUME 9.2 fL (9.0-12.2); MONOCYTES # (AUTO) 0.2 10^3/uL (0.0-1.0); MONOCYTES % (AUTO) 2 % (0-12); NEUTROPHILS # (AUTO) 9.5 10^3/uL (1.8-7.8); NEUTROPHILS % (AUTO) 84 % (42-75); PLATELET COUNT 193 10^3/uL (130-400); WHITE BLOOD COUNT 11.3 10^3/uL (4.3-11.0)
[2020-04-24 04:16] LABS: ALBUMIN 3.3 GM/DL (3.2-4.5); CHLORIDE 105 MMOL/L (98-107); SODIUM 138 MMOL/L (135-145)
[2020-04-24 04:17] LABS: CALCIUM 8.3 MG/DL (8.5-10.1)
[2020-04-24 04:19] LABS: GLUCOSE 105 MG/DL (70-105); TOTAL PROTEIN 6.4 GM/DL (6.4-8.2)
[2020-04-24 04:20] LABS: BILIRUBIN,TOTAL 1.2 MG/DL (0.1-1.0); CARBON DIOXIDE 21 MMOL/L (21-32)
[2020-04-24 04:22] LABS: ALKALINE PHOSPHATASE 85 U/L (40-136); CREATININE SERUM 0.76 MG/DL (0.60-1.30); GFR ESTIMATED > 60; PHOSPHORUS 3.5 MG/DL (2.3-4.7)
[2020-04-24 04:23] LABS: BUN/CREATININE RATIO 24
[2020-04-24 04:25] LABS: ALANINE AMINOTRANSFERASE 56 U/L (0-55); MAGNESIUM 2.1 MG/DL (1.6-2.4)
--- NOTE | 2020-04-24 04:26 | Pulmonary Progress Note ---
Subjective Time Seen by a Provider: 04:20 Subjective/Events-last exam Pt is still requiring Vapotherm. Sepsis Event Evaluation Height, Weight, BMI Height: 5'11.00" Weight: 300lbs. oz. 136.581742wc; 46.17 BMI Method: Exam Exam Vital Signs Date Time Temp Pulse Resp B/P (MAP) Pulse Ox O2 Delivery O2 Flow Rate FiO2 04/24/20 02:17 69 Vapotherm 30.00 80 04/24/20 02:05 36.8 04/24/20 01:00 70 04/23/20 23:00 87 33 164/98 (120) 93 Vapotherm 30.00 80.00 04/23/20 22:58 Vapotherm 30.00 80.00 04/23/20 22:57 38.1 04/23/20 22:52 38.1 04/23/20 22:38 91 Vapotherm 30.00 70 04/23/20 22:00 78 27 167/93 (117) 93 Vapotherm 30.00 70.00 04/23/20 21:00 83 22 153/85 (107) 94 Vapotherm 30.00 70.00 04/23/20 20:31 Vapotherm 30.00 70.00 04/23/20 20:00 90 22 139/84 (102) 94 Vapotherm 30.00 50.00 04/23/20 20:00 Vapotherm 30.00 70 04/23/20 19:55 37.4 04/23/20 19:34 Vapotherm 30.00 50.00 04/23/20 19:23 90 Vapotherm 30.00 50 04/23/20 19:00 83 04/23/20 19:00 82 31 156/86 (109) 94 Vapotherm 30.00 44.00 04/23/20 18:00 79 153/105 (121) 92 Vapotherm 30.00 44.00 04/23/20 17:00 37.2 04/23/20 17:00 78 27 151/92 (111) 92 Vapotherm 30.00 44.00 04/23/20 16:00 82 153/91 (111) 95 Vapotherm 30.00 44.00 04/23/20 15:39 140/87 (104) 04/23/20 15:00 82 14 224/125 (158) 91 Vapotherm 30.00 44.00 04/23/20 14:56 95 High Flow N/C 8.00 04/23/20 14:00 80 23 173/124 (140) 95 Vapotherm 30.00 44.00 04/23/20 13:00 77 58 145/100 (115) 94 Vapotherm 30.00 44.00 04/23/20 12:38 73 04/23/20 12:00 36 127/96 (106) 95 Vapotherm 30.00 44.00 04/23/20 12:00 37.1 04/23/20 11:20 Vapotherm 30.00 44.00 04/23/20 11:18 95 Vapotherm 30.00 44 04/23/20 11:00 79 41 130/77 (94) 96 Vapotherm 30.00 50.00 04/23/20 10:00 85 22 130/77 (94) 90 Vapotherm 30.00 50.00 04/23/20 09:00 36.8 80 23 137/95 (109) 93 Vapotherm 30.00 50.00 04/23/20 08:00 Vapotherm 30.00 50 04/23/20 08:00 81 43 132/84 (100) 88 Vapotherm 30.00 50.00 04/23/20 06:57 98 Vapotherm 30.00 50 04/23/20 06:35 81 04/23/20 06:00 80 27 143/87 (105) 99 Vapotherm 30.00 50.00 04/23/20 05:00 72 26 124/79 (94) 99 Vapotherm 30.00 50.00 I & O 04/24/20 07:00 Intake Total 1340 ml Output Total 3050 ml Balance -1710 ml Height & Weight Height: 5'11.00" Weight: 300lbs. oz. 136.283582yq; 46.17 BMI Method: General Appearance: WD/WN, Anxious, Moderate Distress, Obese HEENT: PERRL/EOMI, Pharynx Normal Neck: Normal Inspection, Supple Respiratory: No Accessory Muscle Use, Decreased Breath Sounds, Other (on Vapotherm) Cardiovascular: Regular Rate, Rhythm, No Murmur Capillary Refill: Less Than 3 Seconds Extremity: Non Tender, Swelling, Other (bilateral lower extremity swelling, chronic right hand debility) Neurologic/Psychiatric: Alert, Oriented x3 Skin: Normal Color, Warm/Dry Results Lab Laboratory Tests 04/22/20 06:15 04/23/20 04:05 04/24/20 03:55 Assessment/Plan Assessment/Plan Acute respiratory failure secondary to COVID 19 with ARDS -Pt will probably need intubation -Currenlty requiring 80% Vapotherm -CT chest - No PE bilateral GGO -Continue Decadron -Currently on Remdesivir -CVP Secondary pneumonia -Repeat pabon cultures pending Hypokalemia -Replace -Check mag and phos DDIMER - increased to 6.95 -Continue Theraputic dose lovenox JOON -Monitor HTN Coreg Hyperglycemia A1C 7.1 Sliding scale insulin Morbid obesity BiPAP PRN DVT prophylaxis: Lovenox 150mg BID KUMAR LOPEZ DO Apr 24, 2020 04:26
[2020-04-24] MEDS: cefTRIAXone FOR IV USE 1,000 MG in WATER (STERILE) FOR INJECTION 10 ML IV SCH (04:42)
[2020-04-24] MEDS: dexAMETHasone 6 MG TAB (DECADRON) PO SCH (04:42)
--- NOTE | 2020-04-24 06:07 | Diagnostic Imaging Report ---
EXAMINATION: Portable erect AP chest at 119 hours. INDICATION: Respiratory distress, Covid. FINDINGS: As noted on the prior exam of 04/23/2020, there are diffuse alveolar/interstitial pulmonary infiltrates bilaterally. These findings are quite similar to the prior exam. The heart is stable in size. The mediastinum is not widened. The osseous structures are intact. IMPRESSION: Stable chest. There has been no adverse change since the prior exam. Dictated by: Dictated on workstation # [id number]
[2020-04-24] MEDS: AZITHROMYCIN INJECTION 250 MG in NS (IVPB) 250 ML IV SCH (07:52)
[2020-04-24] MEDS: FAMOTIDINE 20MG/2ML IV (PEPCID) IVP SCH ×2 (07:56→20:35)
[2020-04-24] MEDS: CARVEDILOL 6.25 MG (COREG) TAB PO SCH ×2 (07:56→20:35)
[2020-04-24] MEDS: DOCUSATE SODIUM 100 MG (COLACE) CAP PO SCH ×2 (07:57→20:35)
[2020-04-24] MEDS: ENOXAPARIN 300 MG/3 ML (LOVENOX) MULTI-DOSE VIAL SQ SCH ×2 (07:57→20:46)
[2020-04-24] MEDS: SENNOSIDES 8.6 MG (SENOKOT) TAB PO SCH ×2 (07:57→20:35)
[2020-04-24] MEDS ORDERED: morphine INJ 4 MG/ML 1 ML (VIAL/SYRINGE) ONE (08:22)
[2020-04-24] MEDS ORDERED: morphine PF (DURAMORPH) 10 MG/10 ML AMP IV PRN (08:30)
[2020-04-24] MEDS ORDERED: morphine INJ 4 MG/ML 1 ML (VIAL/SYRINGE) IVP ONE (08:45)
[2020-04-24] MEDS: inSUlin ASPART (NovoLOG) 1 UNIT/0.01 ML (CHARGE PER UNIT) SC SCH ×4 (09:04→20:14)
[2020-04-24] MEDS ORDERED: morphine INJ 4 MG/ML 1 ML (VIAL/SYRINGE) IV PRN (12:00)
--- NOTE | 2020-04-24 13:22 | NUR ---
1310-FAMILY CALLED AND UPDATES GIVEN. QUESTIONS ANSWERED ATT.
--- NOTE | 2020-04-24 13:59 | NUR ---
"RD ASSESSMENT PMHx: HTN; PT INTERACTION: Note pt is currently in COVID isolation per chart review. Note all diet information for nutrition assessment for LOS is per Sis RN or per chart review. Sis states current appetite is good, and it has been improving. Note avg PO intake 59% x4d, per chart review. Sis states no issues with n/v/c/d that she is aware of. Note last BM was 04/21, and pt currently on bowel regimen of colace BID, and senna BID, per chart review. Note unable to determine recent wt hx, per chart review. Est. kcal needs: 3265-3508 kcal | 25-30 kcal/kg IBW, based on IBW of 78.2 kg (172#) Est. Pro needs: 78-94 g Pro | 1.0-1.2 g Pro/kg IBW PES STATEMENT: Inadequate oral intake (NI-2.1) related to loss of appetite, as evidenced by chart review, and avg PO intake 59% x4d. INTERVENTION: Continue with current diet order of Regular diet. Pt may benefit from nutrition supplementation if PO intake declines. Will continue to follow and reassess as pt needs, intake, and status change. Celine BALL, MS RD LD [phone] cell"
[2020-04-24] MEDS ORDERED: DexMEDEtomidine 250 ML DRIP 250 ML IV SCH (21:00)
[2020-04-24] MEDS ORDERED: DexMEDEtomidine PRE MIX 100 ML IV ONE (21:31)
[2020-04-25] VITALS (15 sets, daily range): BP systolic 89–156; BP diastolic 26–100
[2020-04-25] MEDS: RT-ALBUTEROL INHALER HFA (VENTOLIN HFA) 18 GM IH SCH ×6 (01:57→22:00)
[2020-04-25 02:07] LABS: BASOPHILS % (AUTO) 0 % (0-10); EOSINOPHILS # (AUTO) 0.1 10^3/uL (0.0-0.3); EOSINOPHILS % (AUTO) 1 % (0-10); HEMATOCRIT 46 % (40-54); HEMOGLOBIN 14.9 g/dL (13.3-17.7); LYMPHOCYTES % (AUTO) 8 % (12-44); MEAN CORPUSCULAR HEMOGLOBIN 28 pg (25-34); MEAN CORPUSCULAR HGB CONC 33 g/dL (32-36); MEAN CORPUSCULAR VOLUME 88 fL (80-99); MEAN PLATELET VOLUME 9.1 fL (9.0-12.2); MONOCYTES # (AUTO) 0.4 10^3/uL (0.0-1.0); MONOCYTES % (AUTO) 3 % (0-12); NEUTROPHILS # (AUTO) 10.1 10^3/uL (1.8-7.8); NEUTROPHILS % (AUTO) 83 % (42-75); PLATELET COUNT 261 10^3/uL (130-400); WHITE BLOOD COUNT 12.1 10^3/uL (4.3-11.0)
[2020-04-25 02:15] LABS: ALBUMIN 3.4 GM/DL (3.2-4.5); CHLORIDE 109 MMOL/L (98-107); POTASSIUM 4.4 MMOL/L (3.6-5.0); SODIUM 142 MMOL/L (135-145)
[2020-04-25 02:16] LABS: CALCIUM 8.6 MG/DL (8.5-10.1)
[2020-04-25 02:17] LABS: GLUCOSE 138 MG/DL (70-105); TOTAL PROTEIN 6.7 GM/DL (6.4-8.2)
[2020-04-25 02:18] LABS: CARBON DIOXIDE 20 MMOL/L (21-32)
[2020-04-25 02:19] LABS: BILIRUBIN,TOTAL 0.9 MG/DL (0.1-1.0)
[2020-04-25 02:21] LABS: ALKALINE PHOSPHATASE 85 U/L (40-136); CREATININE SERUM 0.79 MG/DL (0.60-1.30); GFR ESTIMATED > 60; PHOSPHORUS 4.7 MG/DL (2.3-4.7)
[2020-04-25 02:22] LABS: BUN/CREATININE RATIO 23
[2020-04-25 02:24] LABS: ALANINE AMINOTRANSFERASE 63 U/L (0-55); MAGNESIUM 2.2 MG/DL (1.6-2.4)
[2020-04-25] MEDS: inSUlin ASPART (NovoLOG) 1 UNIT/0.01 ML (CHARGE PER UNIT) SC SCH ×4 (02:27→21:00)
--- NOTE | 2020-04-25 04:36 | Pulmonary Progress Note ---
Subjective Time Seen by a Provider: 04:31 Subjective/Events-last exam Pt became more SOB and more confused last night. Sepsis Event Evaluation Height, Weight, BMI Height: 5'11.00" Weight: 300lbs. oz. 136.399753bu; 46.17 BMI Method: Exam Exam Vital Signs Date Time Temp Pulse Resp B/P (MAP) Pulse Ox O2 Delivery O2 Flow Rate FiO2 04/25/20 04:00 36.7 Vapotherm 25.00 50.00 04/25/20 01:58 95 Vapotherm 40.00 60 04/24/20 23:05 36.6 04/24/20 23:00 76 24 118/75 (89) 94 Vapotherm 25.00 50.00 04/24/20 22:30 81 132/74 04/24/20 22:00 76 24 132/74 (93) 94 Vapotherm 25.00 50.00 04/24/20 21:37 Vapotherm 25.00 50.00 04/24/20 21:20 97 Vapotherm 30.00 60 04/24/20 21:00 73 24 140/74 (96) 97 Vapotherm 25.00 50.00 04/24/20 20:00 82 24 143/70 (94) 88 Vapotherm 30.00 60.00 04/24/20 20:00 95 Vapotherm 30.00 60 04/24/20 19:25 Vapotherm 30.00 60.00 04/24/20 19:21 86 Vapotherm 30.00 50 04/24/20 19:19 37.0 04/24/20 19:00 85 22 143/89 (107) 88 Vapotherm 30.00 60.00 04/24/20 19:00 84 04/24/20 18:00 81 27 122/101 (108) 93 Vapotherm 30.00 50.00 04/24/20 17:00 76 31 109/91 (97) 95 Vapotherm 30.00 50.00 04/24/20 16:00 76 29 132/90 (104) 90 Vapotherm 30.00 50.00 04/24/20 15:20 37.1 04/24/20 15:00 78 34 134/82 (99) 92 Vapotherm 30.00 50.00 04/24/20 14:59 92 Vapotherm 30.00 50 04/24/20 14:58 Vapotherm 30.00 50.00 04/24/20 14:00 78 14 147/71 (96) 91 Vapotherm 30.00 45.00 04/24/20 13:00 74 13 122/85 (97) 92 Vapotherm 30.00 45.00 04/24/20 13:00 79 04/24/20 12:10 Vapotherm 30.00 45.00 04/24/20 12:00 82 23 128/70 (89) 94 Vapotherm 30.00 50.00 04/24/20 11:52 36.1 75 96 45 04/24/20 11:00 72 9 129/82 (98) 96 Vapotherm 30.00 50.00 04/24/20 10:56 97 Vapotherm 30.00 45 04/24/20 10:00 71 38 96 Vapotherm 30.00 50.00 04/24/20 09:00 76 12 91 Vapotherm 30.00 50.00 04/24/20 08:05 94 Vapotherm 30.00 50 04/24/20 08:00 77 33 109/90 (96) 94 Vapotherm 30.00 50.00 04/24/20 07:49 97 Vapotherm 30.00 60 04/24/20 07:00 36.1 75 12 109/90 (96) 93 Vapotherm 30.00 50.00 04/24/20 07:00 78 04/24/20 06:00 77 30 128/80 (96) 96 Vapotherm 30.00 70.00 04/24/20 05:00 64 26 140/79 (99) 95 Vapotherm 30.00 70.00 04/24/20 04:47 Vapotherm 30.00 70.00 I & O 04/25/20 07:00 Intake Total 1670 ml Output Total 3350 ml Balance -1680 ml Height & Weight Height: 5'11.00" Weight: 300lbs. oz. 136.137732sw; 46.17 BMI Method: General Appearance: WD/WN, Anxious, Moderate Distress, Obese HEENT: PERRL/EOMI, Pharynx Normal Neck: Normal Inspection, Supple Respiratory: No Accessory Muscle Use, Decreased Breath Sounds, Other (on Vapotherm) Cardiovascular: Regular Rate, Rhythm, No Murmur Capillary Refill: Less Than 3 Seconds Extremity: Non Tender, Swelling, Other (bilateral lower extremity swelling, chronic right hand debility) Neurologic/Psychiatric: Alert, Oriented x3 Skin: Normal Color, Warm/Dry Results Lab Laboratory Tests 04/24/20 03:55 04/25/20 01:55 Assessment/Plan Assessment/Plan Acute respiratory failure secondary to COVID 19 with ARDS -Pt will probably need intubation -Currenlty requiring 50% Vapotherm -CT chest - No PE bilateral GGO -Continue Decadron -Currently on Remdesivir -CVP ICU psychosis -Pt became very confused with Precedex -- Will D/C -Add Melatonin - Secondary pneumonia -Repeat pabon cultures pending -Rocephin and azithromycin Hypokalemia -Replace -Check mag and phos DDIMER - increased to 6.95 -Continue Theraputic dose lovenox JOON -Monitor HTN Coreg Hyperglycemia A1C 7.1 Sliding scale insulin Morbid obesity BiPAP PRN DVT prophylaxis: Lovenox 150mg BID KUMAR LOPEZ DO Apr 25, 2020 04:36
[2020-04-25] MEDS ORDERED: FUROSEMIDE 40 MG/4 ML INJ (LASIX) IVP ONE (04:45)
[2020-04-25] MEDS ORDERED: HALOPERIDOL 5 MG/ML (HALDOL) VIAL IM PRN (04:45)
[2020-04-25] MEDS: cefTRIAXone FOR IV USE 1,000 MG in WATER (STERILE) FOR INJECTION 10 ML IV SCH (05:02)
[2020-04-25] MEDS: dexAMETHasone 6 MG TAB (DECADRON) PO SCH (05:03)
--- NOTE | 2020-04-25 07:35 | Diagnostic Imaging Report ---
EXAMINATION: Chest 1 view HISTORY: Covid 19 COMPARISON: 04/24/2020 FINDINGS: There are unchanged severe bilateral airspace opacities throughout both lungs. No pleural effusion or pneumothorax. Heart size is normal. IMPRESSION: 1. Unchanged severe bilateral airspace opacities consistent with Covid 19. Dictated by: Dictated on workstation # [id number]
[2020-04-25] MEDS: FAMOTIDINE 20MG/2ML IV (PEPCID) IVP SCH ×2 (08:48→20:21)
[2020-04-25] MEDS: AZITHROMYCIN INJECTION 250 MG in NS (IVPB) 250 ML IV SCH (08:48)
[2020-04-25] MEDS: CARVEDILOL 6.25 MG (COREG) TAB PO SCH ×2 (08:48→20:22)
[2020-04-25] MEDS: SENNOSIDES 8.6 MG (SENOKOT) TAB PO SCH ×2 (08:49→20:29)
[2020-04-25] MEDS: DOCUSATE SODIUM 100 MG (COLACE) CAP PO SCH ×2 (08:49→20:22)
[2020-04-25] MEDS: ENOXAPARIN 300 MG/3 ML (LOVENOX) MULTI-DOSE VIAL SQ SCH ×2 (08:49→20:22)
[2020-04-25] MEDS: risperiDONE 0.5 MG (RisperDAL) TABLET PO SCH ×2 (08:53→20:21)
--- NOTE | 2020-04-25 13:46 | NUR ---
THIS RN CALLED PT'S , ALY, AND PROVIDED UPDATE. SEE INTERVENTION.
[2020-04-25] MEDS: MELATONIN 3 MG TABLET PO SCH (20:21)
[2020-04-25] MEDS: RT-ALBUTEROL INHALER HFA (VENTOLIN HFA) 18 GM IH PRN (21:55)
[2020-04-26] VITALS: BP 154/87
[2020-04-26] MEDS: RT-ALBUTEROL INHALER HFA (VENTOLIN HFA) 18 GM IH SCH ×6 (00:59→22:01)
[2020-04-26 01:56] LABS: BASOPHILS % (AUTO) 0 % (0-10); EOSINOPHILS # (AUTO) 0.1 10^3/uL (0.0-0.3); EOSINOPHILS % (AUTO) 1 % (0-10); HEMATOCRIT 43 % (40-54); HEMOGLOBIN 14.2 g/dL (13.3-17.7); LYMPHOCYTES # (AUTO) 1.4 10^3/uL (1.0-4.0); LYMPHOCYTES % (AUTO) 13 % (12-44); MEAN CORPUSCULAR HEMOGLOBIN 29 pg (25-34); MEAN CORPUSCULAR HGB CONC 33 g/dL (32-36); MEAN CORPUSCULAR VOLUME 87 fL (80-99); MEAN PLATELET VOLUME 9.2 fL (9.0-12.2); MONOCYTES # (AUTO) 0.5 10^3/uL (0.0-1.0); MONOCYTES % (AUTO) 4 % (0-12); NEUTROPHILS # (AUTO) 8.7 10^3/uL (1.8-7.8); NEUTROPHILS % (AUTO) 78 % (42-75); PLATELET COUNT 246 10^3/uL (130-400); WHITE BLOOD COUNT 11.2 10^3/uL (4.3-11.0)
[2020-04-26 02:10] LABS: ALBUMIN 3.2 GM/DL (3.2-4.5); CHLORIDE 107 MMOL/L (98-107); POTASSIUM 3.8 MMOL/L (3.6-5.0); SODIUM 140 MMOL/L (135-145)
[2020-04-26 02:11] LABS: CALCIUM 8.3 MG/DL (8.5-10.1)
[2020-04-26 02:12] LABS: GLUCOSE 100 MG/DL (70-105); TOTAL PROTEIN 6.2 GM/DL (6.4-8.2)
[2020-04-26 02:13] LABS: CARBON DIOXIDE 20 MMOL/L (21-32)
[2020-04-26 02:14] LABS: BILIRUBIN,TOTAL 0.9 MG/DL (0.1-1.0)
[2020-04-26 02:16] LABS: ALKALINE PHOSPHATASE 68 U/L (40-136); CREATININE SERUM 0.77 MG/DL (0.60-1.30); GFR ESTIMATED > 60; PHOSPHORUS 4.9 MG/DL (2.3-4.7)
[2020-04-26 02:17] LABS: BUN/CREATININE RATIO 27
[2020-04-26 02:19] LABS: ALANINE AMINOTRANSFERASE 67 U/L (0-55); MAGNESIUM 2.1 MG/DL (1.6-2.4)
[2020-04-26 04:00] VITALS: BP 179/103
[2020-04-26] MEDS: cefTRIAXone FOR IV USE 1,000 MG in WATER (STERILE) FOR INJECTION 10 ML IV SCH (05:00)
--- NOTE | 2020-04-26 05:09 | Pulmonary Progress Note ---
Subjective Time Seen by a Provider: 05:07 Subjective/Events-last exam Pt is doing better. Currently on 3 liter NC. Sepsis Event Evaluation Height, Weight, BMI Height: 5'11.00" Weight: 300lbs. oz. 136.626761lx; 46.17 BMI Method: Exam Exam Vital Signs Date Time Temp Pulse Resp B/P (MAP) Pulse Ox O2 Delivery O2 Flow Rate FiO2 04/26/20 00:59 98 High Flow N/C 3.00 04/25/20 22:00 94 High Flow N/C 3.00 04/25/20 20:00 84 18 128/96 (107) 97 High Flow N/C 3.00 04/25/20 20:00 96 Nasal Cannula 4.00 04/25/20 19:00 82 04/25/20 18:38 95 High Flow N/C 3.00 04/25/20 16:00 77 11 156/78 (104) 95 High Flow N/C 3.00 04/25/20 15:34 High Flow N/C 3.00 04/25/20 15:26 96 Vapotherm 15.00 30 04/25/20 13:51 Vapotherm 15.00 30.00 04/25/20 13:00 93 37 98 Vapotherm 25.00 30.00 04/25/20 12:39 73 04/25/20 12:16 36.9 04/25/20 12:00 75 31 147/81 (103) 96 Vapotherm 25.00 30.00 04/25/20 11:24 93 Vapotherm 25.00 30 04/25/20 11:00 75 36 131/77 (95) 97 Vapotherm 25.00 30.00 04/25/20 10:00 79 17 128/82 (97) 94 Vapotherm 25.00 30.00 04/25/20 09:37 36.7 Vapotherm 25.00 30.00 04/25/20 09:00 77 23 114/26 (55) 97 Vapotherm 25.00 40.00 04/25/20 08:00 70 16 89/59 (69) 98 Vapotherm 25.00 40.00 04/25/20 08:00 97 Vapotherm 25.00 40 04/25/20 07:43 Vapotherm 25.00 40.00 04/25/20 07:37 99 Vapotherm 25.00 50 04/25/20 07:00 71 21 114/53 (73) 98 Vapotherm 25.00 50.00 04/25/20 07:00 70 04/25/20 06:00 69 18 104/61 (75) 100 Vapotherm 25.00 50.00 I & O 04/26/20 07:00 Intake Total 2540 ml Output Total 3430 ml Balance -890 ml Height & Weight Height: 5'11.00" Weight: 300lbs. oz. 136.023614ia; 46.17 BMI Method: General Appearance: WD/WN, Anxious, Moderate Distress, Obese HEENT: PERRL/EOMI, Pharynx Normal Neck: Normal Inspection, Supple Respiratory: No Accessory Muscle Use, Decreased Breath Sounds, Other (on Vapotherm) Cardiovascular: Regular Rate, Rhythm, No Murmur Capillary Refill: Less Than 3 Seconds Extremity: Non Tender, Swelling, Other (bilateral lower extremity swelling, chronic right hand debility) Neurologic/Psychiatric: Alert, Oriented x3 Skin: Normal Color, Warm/Dry Results Lab Laboratory Tests 04/25/20 01:55 04/26/20 01:45 Assessment/Plan Assessment/Plan Acute respiratory failure secondary to COVID 19 with ARDS -Pt is doing much better. -He is now down to 3liter NC after Lasix -CT chest - No PE bilateral GGO -Continue Decadron - Remdesivir -CVP ICU psychosis - improved Melatonin - Secondary pneumonia -Repeat pabon cultures pending -Rocephin and azithromycin Hypokalemia -Replace -Check mag and phos DDIMER - increased to 6.95 -Continue Theraputic dose lovenox JOON -Monitor HTN Coreg Hyperglycemia A1C 7.1 Sliding scale insulin Morbid obesity BiPAP PRN DVT prophylaxis: Lovenox 150mg BID KUMAR LOPEZ DO Apr 26, 2020 05:09
[2020-04-26] MEDS ORDERED: oxyCODONE/APAP 5/325MG (PERCOCET 5) TABLET ONE (05:34)
[2020-04-26] MEDS: inSUlin ASPART (NovoLOG) 1 UNIT/0.01 ML (CHARGE PER UNIT) SC SCH ×4 (05:40→20:07)
[2020-04-26 08:00] VITALS: BP 140/96
[2020-04-26] MEDS: risperiDONE 0.5 MG (RisperDAL) TABLET PO SCH ×2 (08:01→20:57)
[2020-04-26] MEDS: SENNOSIDES 8.6 MG (SENOKOT) TAB PO SCH ×2 (08:28→20:57)
[2020-04-26] MEDS: FAMOTIDINE 20MG/2ML IV (PEPCID) IVP SCH ×2 (08:28→20:59)
[2020-04-26] MEDS: CARVEDILOL 6.25 MG (COREG) TAB PO SCH ×2 (08:28→20:57)
[2020-04-26] MEDS: dexAMETHasone 6 MG TAB (DECADRON) PO SCH (08:28)
[2020-04-26] MEDS: DOCUSATE SODIUM 100 MG (COLACE) CAP PO SCH ×2 (08:28→20:57)
[2020-04-26] MEDS: ENOXAPARIN 300 MG/3 ML (LOVENOX) MULTI-DOSE VIAL SQ SCH ×2 (08:29→20:58)
[2020-04-26] MEDS: AZITHROMYCIN INJECTION 250 MG in NS (IVPB) 250 ML IV SCH (08:29)
--- NOTE | 2020-04-26 08:45 | Diagnostic Imaging Report ---
EXAMINATION: Chest 1 view HISTORY: Covid 19 COMPARISON: 04/25/2020 FINDINGS: There is severe bilateral airspace opacities which are unchanged. No pleural effusion or pneumothorax. Heart size is normal. Left upper extremity peripherally inserted central venous catheter tip terminates in the superior vena cava. IMPRESSION: 1. Unchanged severe bilateral airspace opacities consistent with Covid 19. Dictated by: Dictated on workstation # [id number]
--- NOTE | 2020-04-26 09:58 | NUR ---
REPORT RECEIVED FROM HEATING AND VENTILATING TENDER JOSE. PATIENT TRANSFERRED TO ROOM 424 VIA WHEELCHAIR. PATIENT HAS FRESH ICE WATER AND KLEENEX. 2 L NH DENIES ANY OTHER NEEDS AT THIS TIME. WILL CONTINUE TO MONITOR.
[2020-04-26 13:00] VITALS: BP 122/74
[2020-04-26 16:00] VITALS: BP 160/75
[2020-04-26 20:00] VITALS: BP 135/65
[2020-04-26] MEDS: MELATONIN 3 MG TABLET PO SCH (20:58)
[2020-04-27] VITALS (7 sets, daily range): BP systolic 126–173; BP diastolic 66–94
[2020-04-27] MEDS: RT-ALBUTEROL INHALER HFA (VENTOLIN HFA) 18 GM IH SCH ×4 (02:17→14:55)
[2020-04-27] MEDS: inSUlin ASPART (NovoLOG) 1 UNIT/0.01 ML (CHARGE PER UNIT) SC SCH ×2 (05:31→13:05)
[2020-04-27] MEDS ORDERED: WATER (STERILE) FOR INJECTION 10 ML ONE (05:39)
[2020-04-27] MEDS ORDERED: cefTRIAXone 1,000 MG IV (ROCEPHIN) VIAL ONE (05:39)
[2020-04-27] MEDS: cefTRIAXone FOR IV USE 1,000 MG in WATER (STERILE) FOR INJECTION 10 ML IV SCH (05:54)
[2020-04-27] MEDS: dexAMETHasone 6 MG TAB (DECADRON) PO SCH (06:02)
[2020-04-27 06:09] LABS: BASOPHILS % (AUTO) 0 % (0-10); EOSINOPHILS # (AUTO) 0.1 10^3/uL (0.0-0.3); EOSINOPHILS % (AUTO) 1 % (0-10); HEMATOCRIT 46 % (40-54); HEMOGLOBIN 14.6 g/dL (13.3-17.7); LYMPHOCYTES # (AUTO) 1.6 10^3/uL (1.0-4.0); LYMPHOCYTES % (AUTO) 15 % (12-44); MEAN CORPUSCULAR HEMOGLOBIN 28 pg (25-34); MEAN CORPUSCULAR HGB CONC 32 g/dL (32-36); MEAN CORPUSCULAR VOLUME 88 fL (80-99); MEAN PLATELET VOLUME 8.8 fL (9.0-12.2); MONOCYTES # (AUTO) 0.4 10^3/uL (0.0-1.0); MONOCYTES % (AUTO) 4 % (0-12); NEUTROPHILS # (AUTO) 7.8 10^3/uL (1.8-7.8); NEUTROPHILS % (AUTO) 75 % (42-75); PLATELET COUNT 247 10^3/uL (130-400); WHITE BLOOD COUNT 10.4 10^3/uL (4.3-11.0)
[2020-04-27 06:24] LABS: ALBUMIN 3.5 GM/DL (3.2-4.5)
[2020-04-27 06:25] LABS: CHLORIDE 107 MMOL/L (98-107); SODIUM 140 MMOL/L (135-145)
[2020-04-27 06:26] LABS: CALCIUM 8.6 MG/DL (8.5-10.1)
[2020-04-27 06:27] LABS: GLUCOSE 95 MG/DL (70-105); TOTAL PROTEIN 7.2 GM/DL (6.4-8.2)
[2020-04-27 06:28] LABS: CARBON DIOXIDE 22 MMOL/L (21-32)
[2020-04-27 06:29] LABS: BILIRUBIN,TOTAL 1.1 MG/DL (0.1-1.0)
[2020-04-27 06:30] LABS: ALKALINE PHOSPHATASE 62 U/L (40-136); PHOSPHORUS 3.6 MG/DL (2.3-4.7)
[2020-04-27 06:31] LABS: CREATININE SERUM 0.76 MG/DL (0.60-1.30); GFR ESTIMATED > 60
[2020-04-27 06:32] LABS: BUN/CREATININE RATIO 24
[2020-04-27 06:33] LABS: MAGNESIUM 2.2 MG/DL (1.6-2.4)
[2020-04-27 06:34] LABS: ALANINE AMINOTRANSFERASE 82 U/L (0-55)
[2020-04-27] MEDS: DOCUSATE SODIUM 100 MG (COLACE) CAP PO SCH (09:00)
[2020-04-27] MEDS: SENNOSIDES 8.6 MG (SENOKOT) TAB PO SCH (09:00)
[2020-04-27] MEDS: AZITHROMYCIN INJECTION 250 MG in NS (IVPB) 250 ML IV SCH (09:52)
[2020-04-27] MEDS: FAMOTIDINE 20MG/2ML IV (PEPCID) IVP SCH (09:53)
[2020-04-27] MEDS: CARVEDILOL 6.25 MG (COREG) TAB PO SCH (09:54)
[2020-04-27] MEDS: ENOXAPARIN 300 MG/3 ML (LOVENOX) MULTI-DOSE VIAL SQ SCH (09:54)
[2020-04-27] MEDS: risperiDONE 0.5 MG (RisperDAL) TABLET PO SCH (11:02)
[2020-04-27] MEDS ORDERED: APIX5TAB PO (14:00)
--- NOTE | 2020-04-27 14:35 | NUR ---
CM/SS visited with patient for discharge planning/finalized discharge. Plan: The patient will discharge to home self care 04/27/20. The patient will have a home o2 study to see if he qualifies. DME: The patient was provided with a choice list. He reports that he would like to use [facility] if he qualifies. CM/SS awaiting results of home o2 study. Will send orders when available. Medication: CM/SS provided the patient with a 30-day-free and 10 dollar co-pay Eliquis card. CM/SS will continue to follow. Addendum: 04/27/20 at 1530 by DIVYA IZQUIERDO CM/SS follow up. The patient qualified for home oxygen 3 L with exercise. CM/SS notified physician.
--- NOTE | 2020-04-27 14:57 | NUR ---
PATIENT QUALIFIES FOR 3L WHILE AMBULATORY Addendum: 04/27/20 at 1458 by VERNELL RUSHING RT Amended: Links added.
--- NOTE | 2020-04-27 18:25 | NUR ---
NILA BARNARD demonstrates understanding of discharge instructions and accurately returns instructions upon questioning. Copy of Post-Discharge Instructions given to . NILA BARNARD is able to manage continuing needs after discharge. Patients belongings returned to [place]. Patient discharged from [facility] on at 1700. NILA BARNARD left floor via wheelchair, accompanied by staff. Coupon for Roland provided to patient.
--- NOTE | 2020-04-27 20:13 | Discharge Summary ---
Discharge Summary Hospital Course Was the Problem List Reviewed?: Yes Problems/Dx: (1) Acute respiratory failure due to COVID-19 Status: Acute (2) Acute kidney injury due to COVID-19 Status: Acute (3) Hypercoagulable state associated with COVID-19 Status: Acute (4) HTN (hypertension) Status: Chronic (5) Hyperglycemia Status: Acute (6) Morbid obesity Status: Chronic (7) Elevated d-dimer Status: Acute Hospital Course Date of Admission: Apr 19, 2020 at 00:08 Admission Diagnosis : Acute respiratory failure due to COVID-19 Family Physician/Provider: Sejal Greene MD Date of Discharge: 04/27/20 Discharge Diagnosis: Acute respiratory failure due to COVID-19 Hospital Course: Abhinav Michelle is a 54 year old male who was admitted with acute respiratory failure due to COVID-19. He was treated with Decadron, Remdesivir, and convalescent plasma. He was also continued on Azithromycin which he had started as an outpatient. He required ICU transfer due to increasing oxygen requirements and was supported with Vapotherm. His course was complicated by a significantly elevated d-dimer and was treated with therapeutic Lovenox. He had a CT which showed no pulmonary embolism. His oxygen requirements subsequently improved. At the time of discharge, he was requiring 3 L oxygen with activity and he was set up with home oxygen. He was given a prescription for Eliquis due to his hypercoagulable state associated with COVID-19. He should follow up with his PCP in two weeks. He needs to quarantine for 4 more days after discharge to complete the 20 day quarantine due to ICU admission. Labs and Pending Lab Test: Laboratory Tests 04/27/20 05:10: Glucometer 83 04/27/20 05:59: White Blood Count 10.4, Red Blood Count 5.18, Hemoglobin 14.6, Hematocrit 46, Mean Corpuscular Volume 88, Mean Corpuscular Hemoglobin 28, Mean Corpuscular Hemoglobin Concent 32, Red Cell Distribution Width 14.1, Platelet Count 247, Mean Platelet Volume 8.8L, Immature Granulocyte % (Auto) 4, Neutrophils (%) (Auto) 75, Lymphocytes (%) (Auto) 15, Monocytes (%) (Auto) 4, Eosinophils (%) (Auto) 1, Basophils (%) (Auto) 0, Neutrophils # (Auto) 7.8, Lymphocytes # (Auto) 1.6, Monocytes # (Auto) 0.4, Eosinophils # (Auto) 0.1, Basophils # (Auto) 0.0, Immature Granulocyte # (Auto) 0.5H, Sodium Level 140, Potassium Level 4.0, Chloride Level 107, Carbon Dioxide Level 22, Anion Gap 11, Blood Urea Nitrogen 18, Creatinine 0.76, Estimat Glomerular Filtration Rate > 60, BUN/Creatinine Ratio 24, Glucose Level 95, Calcium Level 8.6, Corrected Calcium 9.0, Phosphorus Level 3.6, Magnesium Level 2.2, Total Bilirubin 1.1H, Aspartate Amino Transf (AST/SGOT) 50H, Alanine Aminotransferase (ALT/SGPT) 82H, Alkaline Phosphatase 62, Total Protein 7.2, Albumin 3.5 04/27/20 12:42: Glucometer 113H Microbiology 04/23/20 Blood Culture - Preliminary, Resulted No growth 04/22/20 Gram Stain - Final, Complete 04/22/20 Sputum Culture - Final, Complete Usual upper respiratory jacobo Home Meds Active Eliquis (Apixaban) 5 Mg Tablet 5 Mg PO BID 30 Days TAKE 2 TABLETS BID X 7 DAYS, THEN 1 TABLET BID Reported Multivitamin 1 Each Tablet 1 Each PO DAILY Ondansetron Odt (Ondansetron) 4 Mg Tab.rapdis 4 Mg PO Q6H PRN Triamcinolone Acetonide 0.1% Cream (Triamcinolone Acet) 15 Gm Cr 1 Applic TOP BID PRN APPLY TO GENITAL AREA Klor-Con 10 (Potassium Chloride) 10 Meq Tablet.er 10 Meq PO DAILY Quinapril HCl 40 Mg Tablet 40 Mg PO DAILY Furosemide 40 Mg Tablet 40 Mg PO DAILY Assessment/Pt Instructions Take medications as prescribed. Follow up with your PCP. Return with worsening shortness of breath or if you feel like you are getting worse. Discharge Planning: <30 minutes discharge planning Discharge Instructions Discharge Diet: No Restrictions Activity as Tolerated: Yes Discharge Physical Examination Vital Signs Vital Signs Date Time Temp Pulse Resp B/P (MAP) Pulse Ox O2 Delivery O2 Flow Rate FiO2 04/27/20 17:00 36.0 89 20 139/74 (95) 97 High Flow N/C 3.00 04/26/20 08:00 40 General Appearance: No Apparent Distress, Obese Respiratory: Lungs Clear, Normal Breath Sounds, No Respiratory Distress Cardiovascular: Regular Rate, Rhythm, No Edema, No Murmur Gastrointestinal: Normal Bowel Sounds, Non Tender, Soft Extremity: Normal Inspection, Non Tender, No Pedal Edema Skin: Normal Color, Warm/Dry Neurologic/Psychiatric: Alert, Oriented x3, No Motor/Sensory Deficits, Normal Mood/Affect Allergies: Coded Allergies: tetanus and diphtheria toxoids (Verified Allergy, Unknown, 11/02/17) Copy Copies To 1: SEJAL GREENE MD Discharge Summary Date of Admission Apr 19, 2020 at 00:08 Date of Discharge Apr 27, 2020 at 17:00 Discharge Date: Apr 27, 2020 Discharge Time: 17:00 Admission Diagnosis Acute respiratory failure due to COVID-19 Discharge Diagnosis Acute respiratory failure due to COVID-19 (1) Acute respiratory failure due to COVID-19 Status: Acute (2) Acute kidney injury due to COVID-19 Status: Acute (3) Hypercoagulable state associated with COVID-19 Status: Acute (4) HTN (hypertension) Status: Chronic (5) Hyperglycemia Status: Acute (6) Morbid obesity Status: Chronic (7) Elevated d-dimer Status: Acute LALY FUENTES MD Apr 27, 2020 20:09
== END 2020-04-27 17:00 | disposition home or self-care (01) | DRG 177 ==
LOC: EDUNIT# 20:15 → ER 20:16 → 4TH 04-19 00:08 → ICU 04-22 10:48 → 4TH 04-26 09:58
PROVIDERS: ADMIT Internal Medicine; ATTEND Internal Medicine
PROC: XW033E5 Introduction of Remdesivir Anti-infective into Peripheral Vein, Percutaneous Approach, New Technology Group 5 (ICD-10-PCS; principal; 2020-04-19)
PROC: XW13325 Transfusion of Convalescent Plasma (Nonautologous) into Peripheral Vein, Percutaneous Approach, New Technology Group 5 (ICD-10-PCS; 2020-04-19)
DX: U07.1 COVID-19 (principal); J80 Acute respiratory distress syndrome; J12.82 Pneumonia due to coronavirus disease 2019; N17.9 Acute kidney failure, unspecified; Z68.42 Body mass index [BMI] 45.0-49.9, adult; E66.01 Morbid (severe) obesity due to excess calories; R19.7 Diarrhea, unspecified; I10 Essential (primary) hypertension; R73.9 Hyperglycemia, unspecified; E87.6 Hypokalemia; F29 Unspecified psychosis not due to a substance or known physiological condition; Z73.0 Burn-out; Z88.7 Allergy status to serum and vaccine
CPT/HCPCS: 36415; 36569; 71045; 71275; 76937; 80048; 80053; 81000; 82805; 82962; 83036; 83615; 83735; 83880; 84100; 84145; 85007; 85025; 85027; 85379; 86141; 86900; 86901; 87040; 87070; 87205; 94640; 94664; 94760; 94761; 96374

== ENCOUNTER → 2022-01-28 | Outpatient (CLI) | payer BC ==
[~2022-01-28] MED LIST changes: +APIX5TAB PO; +AZIT250T12 PO; +FURO40TA4 PO; +HYDR12.56 PO; +IBUP-2473 PO; +MULT-1136 PO; +ONDA4TAB11 PO; +POTA-160 PO; +QUIN40TA34 PO; +TR1C15 TOP
--- NOTE | 2022-01-28 14:03 | Diagnostic Imaging Report ---
PROCEDURE: US left lower extremity venous. TECHNIQUE: Multiple real-time grayscale images were obtained over the left lower extremity in various projections. Additional duplex Doppler and color Doppler images were also obtained. INDICATION: Swelling and pain in the left leg. COMPARISON: None FINDINGS: The left common femoral vein, femoral vein, deep femoral vein, and popliteal vein are normal in appearance. These vessels show normal compressibility, color flow and doppler augmentation. The visualized deep calf veins demonstrate no distinct intraluminal thrombus. IMPRESSION: 1. No sonographic evidence of deep venous thrombosis in the left lower extremity. Dictated by: Dictated on workstation # [id number]
== END ==
LOC: RAD 11:09
PROVIDERS: ATTEND Nurse Practitioner Family
DX: M79.89 Other specified soft tissue disorders (principal); M79.662 Pain in left lower leg